=== PATIENT | female | born 1955 | race Caucasian/White ===

== ENCOUNTER → 2024-12-04 | Outpatient (CLI) | payer OTHER, SELFPAY ==
--- NOTE | 2024-12-04 | XR_ITS ---
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
[2024-12-04 09:00] LABS: Glucose Estimated Average 114 mg/dL (80-131); Hemoglobin A1C 5.6 % Hgb (4.8-6.0)
[2024-12-04 09:01] LABS: Basophils # (Auto) 0.1 Thou/mm3 (0.0-0.2); Basophils % (Auto) 1 % (0-2.5); Eosinophils # (Auto) 0.1 Thou/mm3 (0.0-0.5); Eosinophils % (Auto) 2 % (0-10); Hematocrit 39.9 % (36.0-46.0); Hemoglobin 13.4 g/dL (12.0-16.0); Immature Granulocytes % (Auto) 0 % (0-0); Immature Granulocytes Auto 0.02 Thou/mm3 (0.00-0.00); Lymphocytes # (Auto) 1.1 Thou/mm3 (1.0-4.8); Lymphocytes % (Auto) 18 % (10-50); Mean Corpuscular HGB Conc 33.6 g/dl (31.0-37.0); Mean Corpuscular Hemoglobin 31.2 pg (25.0-35.0); Mean Corpuscular Volume 93 fL (80-100); Monocytes # (Auto) 0.6 Thou/mm3 (0.0-0.8); Monocytes % (Auto) 10 % (0-12); Neutrophils # (Auto) 4.2 Thou/mm3 (1.8-7.7); Neutrophils % (Auto) 69 % (37-80); Nucleated Red Blood Cell % 0 /100 WBC (0); Platelet Count 285 Thou/mm3 (140-440); RDW Standard Deviation 43.4 fL (36.4-46.3); White Blood Count 6.2 Thou/mm3 (3.6-11.0)
[2024-12-04 09:10] LABS: Alanine Aminotransferase 38 U/L (10-49); Albumin, Serum 4.6 gm/dL (3.4-4.8); Albumin/Globulin Ratio 2.4 (1.2-2.2); Alkaline Phosphatase 88 U/L (46-116); Anion Gap 10 (7-16); Aspartate Amino Transferase 25 U/L (0-34); BUN/Creatinine Ratio 34 Ratio (12-20); Bilirubin,Total 0.3 mg/dL (0.3-1.2); Blood Urea Nitrogen 34 mg/dL (9-23); C-Reactive Protein 0.5 mg/dL (0.0-0.9); Calcium 10.1 mg/dL (8.3-10.6); Calcium (Corrected) 10.1 mg/dL (8.5-10.1); Carbon Dioxide 24.5 mMol/L (20.0-31.0); Chloride 105 mMol/L (98-107); Cholesterol 223 mg/dL (132-200); Free T4 (Free Thyroxine) 1.11 ng/dL (0.89-1.76); Globulin 1.9 gm/dL (2.3-3.5); Glucose 119 mg/dL (74-106); HDL Cholesterol 45 mg/dL (40-60); Osmolality,Calculated 286 (275-295); Potassium 4.9 mMol/L (3.4-5.1); Sodium 139 mMol/L (136-145); Thyroid Stimulating Hormone 2.55 uIU/mL (0.55-4.78); Total Protein 6.5 gm/dL (5.7-8.2); Triglycerides 463 mg/dL (30-150); eGFR > 60 See Note
[2024-12-04 09:26] LABS: Folate 8.38 ng/mL (>5.38); Vitamin B12 320 pg/mL (211-911); Vitamin D 25 Hydroxy Total 21.6 ng/mL (7.3-40.2)
[2024-12-04 09:51] LABS: Sed Rate (ESR) 1 mm/hr (0-30)
[2024-12-14 06:37] LABS: Vitamin B1 (Thiamine)* <6 nmol/L (8-30)
== END | disposition home or self-care (01) ==
PROVIDERS: PCP Physician Assistant; Referring Provider Internal Medicine; Visit Provider Radiology Diagnostic Radiology
DX: M20.12 Hallux valgus (acquired), left foot (principal); M20.11 Hallux valgus (acquired), right foot; M21.611 Bunion of right foot; M19.072 Primary osteoarthritis, left ankle and foot; M19.071 Primary osteoarthritis, right ankle and foot; E66.2 Morbid (severe) obesity with alveolar hypoventilation; Z68.37 Body mass index [BMI] 37.0-37.9, adult; G62.9 Polyneuropathy, unspecified; M17.11 Unilateral primary osteoarthritis, right knee; M24.59 Contracture, other specified joint; M25.50 Pain in unspecified joint; M54.15 Radiculopathy, thoracolumbar region; M79.10 Myalgia, unspecified site; R53.83 Other fatigue; I10 Essential (primary) hypertension; E78.5 Hyperlipidemia, unspecified; R73.01 Impaired fasting glucose
CPT/HCPCS: 36415; 73630; 80053; 80061; 82306; 82607; 82746; 83036; 84425; 84439; 84443; 85025; 85652; 86140

== ENCOUNTER → 2025-04-19 | Outpatient (CLI) | payer OTHER, SELFPAY ==
--- NOTE | 2025-04-19 12:30 | XR_ITS ---
Examination: Breast ultrasound complete, bilateral Date and time of exam: April 19, 2025 1250 hours Comparison July 23, 2024 INDICATIONS: Personal history left breast cancer lumpectomy 21 years ago, scar formation 11:00 position left breast on left breast sonogram 07/22/2024 Technique: Real-time grayscale ultrasonographic imaging bilateral breasts, including all 4 quadrants as well as nipple retroareolar and axillary regions. Findings: Sonographic images right breast 8:00 cyst 4 x 4 millimeter No solid nodules Sonographic images left breast 11:00 scar formation which appears stable compared to the prior ultrasound study IMPRESSION: BI-RADS Category 2: Benign findings
--- NOTE | 2025-04-19 13:30 | XR_ITS ---
Examination: Screening digital mammography, bilateral Computer aided detection 3-D breast Tomosynthesis, bilateral Date and time of exam: April 19, 2025 1313 hours Compared to mammograms dating to January 11, 2017 Indication: Screening Technique: Nonmagnified MLO, CC views of the breasts to been obtained, reconstructed from 3-D Tomosynthesis images. R2 computer aided detection program utilized for evaluation of suspicious masses and/or abnormal calcifications. 3-D Tomosynthesis images obtained. Findings: The breasts are heterogeneously dense, which may obscure small masses Extensive scar formation skin thickening left breast again noted consistent with patient's history treated left breast cancer 12 mm focal asymmetry 12:00 position right breast anterior depth Impression: BI-RADS Category 0: Incomplete: Need additional imaging evaluation 12 mm focal asymmetry 12:00 position right breast anterior depth, recommend follow-up spot tomographic views of this asymmetry as well as bilateral breast sonography to complete workup
--- NOTE | 2025-04-19 13:45 | XR_ITS ---
Examination: Bone densitometry Date and time of exam:April 19, 2025 1333 hours INDICATIONS: Menopause age 46 breast carcinoma diagnosis 20 years ago Technique: Lumbar spine and hip total bone mineralization values of an calculated. Peak reference and age match control results have been displayed. Findings: Lumbar spine total bone mineralization is1.108 gm/cm2. This is 0.6 standard deviations above peak reference. This is 2.8 standard deviations above age-matched controls. Hip total bone mineralization is 0.882 gm/cm2 This is 0.5 standard deviations below peak reference. This is 1.1 standard deviations above age-matched controls Impression: There is normal mineralization based on lumbar spine measurements. There is osteopenia based on hip measurements Lumbar mineralization is increased 2.0% compared with January 07, 2023 Hip mineralization is decreased 12.3% compared with January 07, 2023
== END | disposition home or self-care (01) ==
PROVIDERS: PCP Physician Assistant; Referring Provider Physician Assistant; Visit Provider Physician Assistant
DX: Z12.31 Encounter for screening mammogram for malignant neoplasm of breast (principal); N60.01 Solitary cyst of right breast; R92.333 Mammographic heterogeneous density, bilateral breasts; Z85.3 Personal history of malignant neoplasm of breast; N64.89 Other specified disorders of breast
CPT/HCPCS: 76641; 77063; 77067; 77080

== ENCOUNTER → 2025-05-21 | Outpatient (CLI) | payer OTHER, SELFPAY ==
--- NOTE | 2025-05-21 08:45 | XR_ITS ---
Examination: Breast ultrasound complete, bilateral Date and time of exam: May 21, 2025 0829 hours INDICATIONS: Scar formation 11:00 position left breast on left breast sonogram 08/19/2025, mammogram April 19, 2025 12 mm focal asymmetry 12:00 position right breast anterior depth Technique: Real-time grayscale ultrasonographic imaging bilateral breasts, including all 4 quadrants as well as nipple retroareolar and axillary regions. Findings: Sonographic images right breast 1:00 cyst 3 x 4 mm No solid nodules Sonographic images left breast 2:00 cyst 4 x 4 millimeter 11:00 scar formation 20 x 17 x 21 mm IMPRESSION: BI-RADS Category 3: Probably benign findings Follow-up six-month left breast sonogram is needed with measurements of 11:00 area of architectural distortion to document stability in size compared with the current study
--- NOTE | 2025-05-21 09:45 | XR_ITS ---
Examination: Diagnostic digital mammography, unilateral, right Computer aided detection 3-D breast Tomosynthesis, unilateral Date and time of exam: May 21, 2025 0850 hours INDICATIONS: Mammogram April 19, 2025 12 mm focal asymmetry 12:00 position right breast Technique: Nonmagnified MLO, CC views of the right breast have been obtained, reconstructed from 3-D Tomosynthesis images. R2 computer aided detection program utilized for evaluation of suspicious masses and/or abnormal calcifications. 3-D Tomosynthesis images obtained. Findings: The breast is heterogeneously dense, which may obscure small masses No suspicious mass depicted on this examination Please see the right breast sonogram report today indicating 11:00 scar formation 20 x 17 x 21 mm Impression: BI-RADS category 2: Benign findings Return to yearly follow-up mammography Right breast sonogram report today recommending 6 month follow-up right breast sonography to document stability of 11:00 scar formation, currently measuring 20 x 17 x 21 mm
[2025-05-21 09:47] LABS: Collection Type, Urine Clean Catch
[2025-05-21 10:14] LABS: Basophils # (Auto) 0.1 Thou/mm3 (0.0-0.2); Basophils % (Auto) 1 % (0-2.5); Eosinophils # (Auto) 0.1 Thou/mm3 (0.0-0.5); Eosinophils % (Auto) 2 % (0-10); Hematocrit 39.7 % (36.0-46.0); Hemoglobin 13.4 g/dL (12.0-16.0); Immature Granulocytes Auto 0.03 Thou/mm3 (0.00-0.00); Lymphocytes # (Auto) 1.2 Thou/mm3 (1.0-4.8); Lymphocytes % (Auto) 22 % (10-50); Mean Corpuscular HGB Conc 33.8 g/dl (31.0-37.0); Mean Corpuscular Hemoglobin 32.4 pg (25.0-35.0); Mean Corpuscular Volume 96 fL (80-100); Monocytes # (Auto) 0.4 Thou/mm3 (0.0-0.8); Monocytes % (Auto) 8 % (0-12); Neutrophils # (Auto) 3.9 Thou/mm3 (1.8-7.7); Neutrophils % (Auto) 68 % (37-80); Nucleated Red Blood Cell # 0.00 Thou/mm3 (0.00-0.00); Nucleated Red Blood Cell % 0 /100 WBC (0); Platelet Count 280 Thou/mm3 (140-440); RDW Standard Deviation 47.4 fL (36.4-46.3); Red Blood Count 4.13 Miln/mm3 (4.00-5.20); White Blood Count 5.7 Thou/mm3 (3.6-11.0)
[2025-05-21 10:23] LABS: Bilirubin,Urine Negative (Negative); Blood,Urine Negative (Negative); Clarity,Urine Clear (Clear/Hazy); Color,Urine Lt-Yellow (Lt Yel-Yel); Culture Indicated,Urine Not Indicated; Glucose, Urine Negative (Negative); Ketones,Urine Negative (Negative); Leukocyte Esterase,Urine Positive (Negative); Nitrite,Urine Negative (Negative); PH,Urine 6.0 (5.0-7.0); Protein,Urine Negative (Neg - Trace); RBC,Urine 1 /hpf (0-3); Specific Gravity,Urine 1.016 (1.001-1.035); Squamous Epithelial Cell,Urine 1 /hpf (0-5); Urobilinogen,Urine Negative mg/dL (0.0-1.0); WBC,Urine 2 /hpf (0-5)
[2025-05-21 10:33] LABS: Vitamin B12 362 pg/mL (211-911); Vitamin D 25 Hydroxy Total 32.0 ng/mL (7.3-40.2)
[2025-05-21 10:59] LABS: Alanine Aminotransferase 31 U/L (10-49); Albumin, Serum 4.7 gm/dL (3.4-4.8); Albumin/Globulin Ratio 2.1 (1.2-2.2); Alkaline Phosphatase 97 U/L (46-116); Anion Gap 13 (7-16); Aspartate Amino Transferase 27 U/L (0-34); BUN/Creatinine Ratio 19 Ratio (12-20); Bilirubin,Total 0.4 mg/dL (0.3-1.2); Blood Urea Nitrogen 21 mg/dL (9-23); C-Reactive Protein < 0.5 mg/dL (0.0-0.9); Calcium 9.4 mg/dL (8.3-10.6); Calcium (Corrected) 9.4 mg/dL (8.5-10.1); Carbon Dioxide 24.6 mMol/L (20.0-31.0); Cardiac Risk Estimate 3.9 RATIO (3.7-5.6); Chloride 107 mMol/L (98-107); Cholesterol 209 mg/dL (132-200); Creatinine (Component) 1.1 mg/dL (0.6-1.3); Globulin 2.2 gm/dL (2.3-3.5); Glucose 103 mg/dL (74-106); HDL Cholesterol 53 mg/dL (40-60); LDL Cholesterol,Calculated 118 mg/dL (0-130); Osmolality,Calculated 291 (275-295); Potassium 4.6 mMol/L (3.4-5.1); Sodium 145 mMol/L (136-145); Thyroid Stimulating Hormone 3.90 uIU/mL (0.55-4.78); Total Protein 6.9 gm/dL (5.7-8.2); Triglycerides 190 mg/dL (30-150); eGFR 54 See Note
[2025-05-21 11:49] LABS: Sed Rate (ESR) 7 mm/hr (0-30)
[2025-05-21 15:45] LABS: RA Screen Negative (Negative)
[2025-05-26 06:33] LABS: CCP Antibody (IgG)* <16 Units
== END | disposition home or self-care (01) ==
LOC: CDIM 08:15 → COPL 09:01
PROVIDERS: PCP Family Medicine; Referring Provider Physician Assistant Medical; Visit Provider Physician Assistant
DX: Z00.00 Encounter for general adult medical examination without abnormal findings (principal); E78.5 Hyperlipidemia, unspecified; I10 Essential (primary) hypertension; E55.9 Vitamin D deficiency, unspecified; R92.321 Mammographic fibroglandular density, right breast; N64.89 Other specified disorders of breast
CPT/HCPCS: 36415; 76641; 77061; 77065; 80053; 80061; 81001; 82306; 82607; 84443; 85025; 85652; 86140; 86200; 86430; G0279

== ENCOUNTER 2025-08-10 10:42 | Inpatient (IN) | payer OTHER, MEDICARE, SELFPAY ==
[2025-08-10] VITALS (32 sets, daily range): BP systolic 110–149; BP diastolic 65–106; PULSE 65–88; RESP 12–100; TEMP 36.4–36.5; O2SAT 86–100; BMI 15.9
--- NOTE | 2025-08-10 10:43 | XR_ITS ---
EXAMINATION: AP chest single view TECHNIQUE: AP portable sitting chest single view Date and time: August 10, 2025, 1144 hours INDICATIONS: Stroke alert shortness of breath today. FINDINGS: Normal heart size. No aspiration pneumonia. Prominent osteopenia. IMPRESSION: Negative for aspiration pneumonia
--- NOTE | 2025-08-10 10:43 | XR_ITS ---
Examination: CTA carotids with intravenous contrast CTA brain, head with intravenous contrast. 2-D sagittal, coronal reconstructions. 3-D reconstructions. Exam date and time: August 10, 2025, 1058 hours INDICATIONS: Stroke alert today, onset slurred speech focal neurologic deficit CTDI: vol (mGy) 11.7 DLP: (mGycm) 457 Technique: Multiple CTA axial brain, head carotid images post intravenous contrast injection 75 cc, [id number]. 2-D sagittal, coronal reconstructions. 3-D reconstructions, 3-D post processing including vascular maximum intensity projection images. Low dose protocols were performed. One or more of the following dose reduction techniques were used; automated exposure control, adjustment of the mA and/or KV according to patient size, use of iterative reconstruction technique. Findings: 14 mm right thyroid nodule No significant common carotid carotid bifurcation or internal carotid artery stenoses Codominant vertebral arteries with no critical stenoses Intracranial vertebral arteries basilar artery posterior cerebral branches fill with no large vessel occlusions Moderate calcification juxtasellar internal carotid arteries No large vessel occlusions involving middle cerebral or anterior cerebral arteries IMPRESSION: A 14 mm right thyroid nodule No significant neck arterial stenoses No cerebral large vessel arterial occlusions
--- NOTE | 2025-08-10 10:43 | XR_ITS ---
Examination: CT brain head without contrast. 2-D sagittal coronal reconstructions Date and time of exam: August 10, 2025, 10:49 a.m. INDICATIONS: Stroke alert, onset focal neurologic deficit this morning including slurred speech CTDI: vol (mGy): 47.3 DLP: (mGycm): 911 Technique: Multiple CT axial sections of the brain have been obtained, 5 mm slice thickness. Contrast has not been administered. 2-D sagittal, coronal reconstructions have been obtained Low dose protocols were performed. One or more of the following dose reduction techniques were used; automated exposure control, adjustment of the mA and/or KV according to patient size, use of iterative reconstruction technique. Findings: No significant ventricular enlargement. Intra-axial or extra-axial hemorrhage density is not seen. No mass effect or midline shift Basal cisterns are not remarkable. Fourth ventricle is midline. Cranial vault intact. Impression: Negative for acute hemorrhage, mass effect or midline shift
--- NOTE | 2025-08-10 10:43 | EKG_ITS ---
[facility] Test Date: 2025-08-10 Pat Name: SHANTEL CLARKE Department: Room: - Gender: Female [employer]er Helper: : [id number] Requested By: Alejandra Odonnell Order Number: [id number] Reading MD: Alejandra Odonnell Measurements Intervals Watts Rate: 89 P: 95 VT: 190 QRS: 134 QRSD: 108 T: 123 QT: 375 QTc: 458 Interpretive Statements SINUS RHYTHM ARM LEADS REVERSED [INVERTED P AND QRS IN I] Compared to ECG 05/30/2023 07:35:48 Incomplete right bundle-branch block no longer present T-wave abnormality no longer present /store/[id number]
--- NOTE | 2025-08-10 10:46 | EDNOTE_ITS ---
Altered Mental Status RME/HPI General Chief Complaint: Altered Mental Status Stated Complaint: ALTERED SINCE YESTERDAY Time Seen by Provider: 08/10/25 10:48 Arrival date/time: 08/10/25 10:42 RME / HPI RME / HPI narrative: 70 year old female with history of hypertension and chronic pain presents to the ED, accompanied by her daughter, for evaluation of confusion and slurred speech that began earlier today. According to the daughter, the patient drove herself to work this morning, but coworkers later called the daughter to report that the patient appeared unwell. Upon arrival, the daughter noted that the patient was disoriented, unable to recall her location, the date, or her birthday, and was repetitively asking the same questions. The patient also appeared to have difficulty with balance, requiring assistance while walking to the car. Daughter contacted patients PCP Dr. Bonner over the phone and recommended coming to the ED for further evaluation. Daughter also mentioned that for the past several weeks, the patient has had intermittent episodes of slurred speech, confusion, dizziness, and falls, although today's episode is significantly more severe. Patient had a fall yesterday but did not sustain any head injury or loss of consciousness. No additional complaints reported at this time. Daughter additionally reports patient began a new weight loss medication that is similar to Ozempic. Related Data Home Medications ?Medication ?Instructions ?Recorded ?Confirmed amitriptyline 25 mg tablet mg PO DAILY 08/10/25 amlodipine 5 mg tablet mg 08/10/25 baclofen 20 mg tablet mg 08/10/25 cyclobenzaprine 10 mg tablet mg 08/10/25 duloxetine 30 mg capsule,delayed mg PO 08/10/25 release ezetimibe 10 mg tablet mg 08/10/25 gabapentin 300 mg capsule mg 08/10/25 hydrocodone 5 mg-acetaminophen 325 tab 08/10/25 mg tablet losartan 100 tab 08/10/25 mg-hydrochlorothiazide 25 mg tablet metoprolol succinate 25 mg mg PO 08/10/25 tablet,extended release 24 hr phentermine 37.5 mg capsule 37.5 mg PO QAM 08/10/25 ropinirole 0.25 mg tablet mg 08/10/25 tirzepatide (weight loss) 7.5 7.5 mg subcut QWEEK 10/0 7/25 10/07/25 mg/0.5 mL subcutaneous pen injector (Cracklepbound) tizanidine 4 mg capsule 4 mg PO DAILY 08/10/2508/10 Allergies Allergy/AdvReac Type Severity Reaction Status Date / Time No Known Allergies Allergy Verified 08/10/25 10:45 Review of Systems Review of Systems Systems Reviewed: All systems reviewed, normal except as documented Past Medical History Past Medical History CARDIAC: Positive Hypertension Social History SMOKING STATUS: Never smoker ED Exam Narrative Physical exam: GENERAL APPEARANCE: alert, appears confused, well-developed, well-nourished HEENT: Normocephalic, atraumatic; pupils equal, round, reactive to light; EOMI; mucous membranes pink, moist; oropharynx clear NECK: Supple LUNGS: CTABL; no wheezes, no rales, no rhonchi HEART: Regular rate, regular rhythm; normal S1, S2; no murmurs ABDOMEN: non distended; normal BS; soft, no tenderness, no guarding, no rebound; no masses, no organomegaly, no hernia EXTREMITIES: atraumatic; no edema NEUROLOGIC: awake; appears confused; cranial nerves II-XII grossly intact; mild left upper extremity weakness PSYCHIATRIC: appropriate mood and affect SKIN: warm, dry, normal color; no rashes Course Course Course Narrative: 1038a: Called over to old triage to evaluate the patient. Blood sugar 79. Ordered for half an amp of D50 to be given. Stroke alert activated. Idania, the sepsis and stoke coordinator, states she spoke with patient family who reported finding [place] and muscle relaxers in patients purse. Do not know if she is currently taking. 1110a: I spoke with teleneurologist Dr. Pepe. States during their assessment, the patient was falling asleep on the CT bed and had to keep stimulating the patient to wake up. States patient was only able to give name and nothing else. Patient is not a TNK candidate, LKWT is unknown. Quality Measures Suspected type of Stroke: Non Acute Last know well: unknown Tenecteplase given: Reason(s) TPA not given: Outside the time window not given stroke Orders Category Date Time Status Admit to Inpatient Status Routine Admission 08/10/25 14:39 Active Patient Condition Routine Admission 08/10/25 14:39 Ordered Aspiration precautions ONCE Care 08/10/25 14:41 Active Bedside Blood Glucose NOW Care 08/10/25 10:43 Active Clinical Education Coordinator NOW Care 08/10/25 10:43 Active Continuous Pulse Oximetry NOW Care 08/10/25 10:43 Completed EKG (ED ONLY) *Do not use* NOW Care 08/10/25 10:43 Completed Head of Bed Elevation NOW Care 08/10/25 14:41 Active In and Out Catheter NEEDED Care 08/10/25 10:43 Active Insert IV NOW Care 08/10/25 10:43 Active NIH Stroke Scale now Care 08/10/25 10:43 Active NPO NOW Care 08/10/25 10:43 Active NPO NOW Care 08/10/25 14:40 Active Neuro Check Q4H Care 08/10/25 14:41 Active Notify provider NEEDED Care 08/10/25 14:39 Active Notify provider NEEDED Care 08/10/25 14:52 Active Nurse Swallow Screen x1 Care 08/10/25 10:43 Active Seizure precautions NEEDED Care 08/10/25 14:53 Active Consult to Neurology / Tele-Neurology Routine Cons 08/10/25 10:43 Active Referral Physical Therapy Routine Cons 08/10/25 15:02 Active Referral Speech Therapy Routine Cons 08/10/25 15:03 Active Diet NPO (NOW) Diet 08/10/25 14:40 Active CA echo doppler complete Routine Exams 08/10/25 14:[address] angio stroke protocol Stat Exams 08/10/25 10:[address] stroke protocol Stat Exams 08/10/25 10:43 Completed EKG (ED Only) Stat Exams 08/10/25 10:43 Draft XR chest 1V portable Stat Exams 08/10/25 10:43 Completed ABG [Arterial Blood Gas] Stat Lab 08/10/25 15:01 Ordered Ammonia Stat Lab 08/10/25 14:06 Completed B-Type Natriuretic Peptide Stat Lab 08/10/25 11:00 Completed Basic Metabolic Panel AM DRAW Lab 08/11/25 05:00 Ordered Basic Metabolic Panel AM DRAW Lab 08/12/25 05:00 Ordered Basic Metabolic Panel AM DRAW Lab 08/13/25 05:00 Ordered Beta Hydroxybutyrate Routine Lab 08/10/25 15:01 Ordered CBC AM DRAW Lab 08/11/25 05:00 Ordered CBC AM DRAW Lab 08/12/25 05:00 Ordered CBC AM DRAW Lab 08/13/25 05:00 Ordered CBC Stat Lab 08/10/25 11:00 Completed Comprehensive Metabolic Panel Stat Lab 08/10/25 11:00 Completed Drug Screen,Urine Stat Lab 08/10/25 11:19 Completed Hemoglobin A1C [Glycohemoglobin w (eAG)] AM DRAW Lab 08/11/25 05:00 Ordered Lactate (Lactic Acid) Routine Lab 08/10/25 15:01 Ordered Lipid Panel AM DRAW Lab 08/11/25 05:00 Ordered Magnesium AM DRAW Lab 08/11/25 05:00 Ordered Magnesium AM DRAW Lab 08/12/25 05:00 Ordered Magnesium AM DRAW Lab 08/13/25 05:00 Ordered Magnesium Stat Lab 08/10/25 11:00 Completed Partial Thromboplastin Time Stat Lab 08/10/25 11:00 Completed Phosphorous AM DRAW Lab 08/11/25 05:00 Ordered Phosphorous AM DRAW Lab 08/12/25 05:00 Ordered Phosphorous AM DRAW Lab 08/13/25 05:00 Ordered Prothrombin Time with INR Stat Lab 08/10/25 11:00 Completed TSH [Thyroid Stimulating Hormone] Stat Lab 08/10/25 14:06 Completed Troponin I Stat Lab 08/10/25 11:00 Completed Urinalysis, C/S if Indicated Stat Lab 08/10/25 11:19 Completed Acetaminophen Tab [Tylenol Tab] Med 08/10/25 14:52 Ordered 650 mg PO Q6H PRN Albuterol/Ipratr Rt Meaghan [Duoneb Rt Meaghan] Med 08/10/25 14:39 Active 3 ml INH Q2HR PRN Dextrose 50% Syr [D50w Syringe Abboject] Med 08/10/25 10:45 Discontinued 25 ml IVP X1 ONE Dextrose 50% Syr [D50w Syringe Abboject] Med 08/10/25 10:46 Discontinued 50 ml .ROUTE .STK-MED ONE Dextrose 50% Syr [D50w Syringe Abboject] Med 08/10/25 14:57 Ordered 50 ml IV Q15MIN PRN Glucagon Inj Med 08/10/25 14:57 Ordered 1 mg IM Q15MIN PRN Heparin Inj Med 08/10/25 15:00 Ordered 5,000 unit SC Q8HR INSULIN LISPRO (AdmeLOG) [HumaLOG] Med 08/10/25 15:15 Ordered See Protocol SC Q6HR Labetalol IV [Trandate IV] Med 08/10/25 10:43 Discontinued 10 mg IVP Q15M PRN Magnesium Sulfate 2 GM Ivpb [Magnesium Sulfate Ivpb] Med 08/10/25 13:10 Discontinued 2 gm in 50 ml IV X1 Magnesium Sulfate 2 GM Ivpb [Magnesium Sulfate Ivpb] Med 08/10/25 15:00 Ordered 2 gm in 50 ml IV X1 Ondansetron Inj [Zofran Inj] Med 08/10/25 10:43 Discontinued 4 mg IVP Q4HR PRN Ondansetron Inj [Zofran Inj] Med 08/10/25 14:52 Ordered 4 mg IVP Q6H PRN Ringers Lactated 1000 ml [Lactated Ringers] 1,000 ml Med 08/10/25 15:00 Ordered IV 100 mls/hr Sodium Chloride 0.9% 1000 ml [Ns] 1,000 ml Med 08/10/25 13:10 Discontinued IV 999 mls/hr hydrALAZINE INJ [Apresoline Inj] Med 08/10/25 15:02 Ordered 10 mg IVP Q4H PRN Code Status Routine Oth 08/10/25 14:39 Ordered Oxygen Delivery NOW RT 08/10/25 10:43 Active Vital Signs Vital signs: Vital Signs Temperature 97.6 F 08/10/25 10:49 Pulse Rate 76 08/10/25 10:49 Respiratory Rate 12 08/10/25 10:49 Blood Pressure 123/106 H 08/10/25 10:49 Pulse Oximetry (%) 96 08/10/25 10:49 Oxygen Delivery Method Room Air 08/10/25 10:49 Pulse ox is 96% on room air which is adequate. Altered Mental Status MDM Narrative MDM Narrative:: Arina Cee am scribing for and in the presence of Dr. Sheets. Patient data External records reviewed:: [facility] previous records Clinical information provided by:: family Social determinants that could affect healthcare access:: none Patient has the following chronic illnesses:: HTN How is presenting disease/condition affected by chronic disease/condition?: exacerbated by Evaluation data The following diagnostics were reviewed and interpreted by me:: lab results, radiology exam(s) and EKG tracing(s) (EKG @ 11:21 AM. Sinus rhythm, rate 89, no STEMI. ) Lab and/or radiology exams considered but not ordered:: None Interpretation Summary: Ordering Physician: Alejandra Sheets MD Date of Service: 08/10/25 Procedure(s): XR chest 1V portable Accession Number(s): [id number] cc: Bishop Velasquez MD; Fatuma Manuel PA-C; Alejandra Sheets MD~ EXAMINATION: AP chest single view TECHNIQUE: AP portable sitting chest single view Date and time: August 10, 2025, 1144 hours INDICATIONS: Stroke alert shortness of breath today. FINDINGS: Normal heart size. No aspiration pneumonia. Prominent osteopenia. IMPRESSION: Negative for aspiration pneumonia Dictated By: Bishop Velasquez MD Signed By: <Electronically signed by Bishop Velasquez MD in OV> 08/10/25 1227 Ordering Physician: Alejandra Sheets MD Date of Service: 08/10/25 Procedure(s): CT stroke protocol Accession Number(s): [id number] cc: Bishop Velasquez MD; Alejandra Sheets MD~ Examination: CT brain head without contrast. 2-D sagittal coronal reconstructions Date and time of exam: August 10, 2025, 10:49 a.m. INDICATIONS: Stroke alert, onset focal neurologic deficit this morning including slurred speech CTDI: vol (mGy): 47.3 DLP: (mGycm): 911 Technique: Multiple CT axial sections of the brain have been obtained, 5 mm slice thickness. Contrast has not been administered. 2-D sagittal, coronal reconstructions have been obtained Low dose protocols were performed. One or more of the following dose reduction techniques were used; automated exposure control, adjustment of the mA and/or KV according to patient size, use of iterative reconstruction technique. Findings: No significant ventricular enlargement. Intra-axial or extra-axial hemorrhage density is not seen. No mass effect or midline shift Basal cisterns are not remarkable. Fourth ventricle is midline. Cranial vault intact. Impression: Negative for acute hemorrhage, mass effect or midline shift Dictated By: Bishop Velasquez MD Signed By: <Electronically signed by Bishop Velasquez MD in OV> 08/10/25 1056 Ordering Physician: Alejandra Sheets MD Date of Service: 08/10/25 Procedure(s): CT angio stroke protocol Accession Number(s): [id number] cc: Bishop Velasquez MD; Fatuma Manuel PA-C; Alejandra Sheets MD~ Examination: CTA carotids with intravenous contrast CTA brain, head with intravenous contrast. 2-D sagittal, coronal reconstructions. 3-D reconstructions. Exam date and time: August 10, 2025, 1058 hours INDICATIONS: Stroke alert today, onset slurred speech focal neurologic deficit CTDI: vol (mGy) 11.7 DLP: (mGycm) 457 Technique: Multiple CTA axial brain, head carotid images post intravenous contrast injection 75 cc, [id number]. 2-D sagittal, coronal reconstructions. 3-D reconstructions, 3-D post processing including vascular maximum intensity projection images. Low dose protocols were performed. One or more of the following dose reduction techniques were used; automated exposure control, adjustment of the mA and/or KV according to patient size, use of iterative reconstruction technique. Findings: 14 mm right thyroid nodule No significant common carotid carotid bifurcation or internal carotid artery stenoses Codominant vertebral arteries with no critical stenoses Intracranial vertebral arteries basilar artery posterior cerebral branches fill with no large vessel occlusions Moderate calcification juxtasellar internal carotid arteries No large vessel occlusions involving middle cerebral or anterior cerebral arteries IMPRESSION: A 14 mm right thyroid nodule No significant neck arterial stenoses No cerebral large vessel arterial occlusions Dictated By: Bishop Velasquez MD Signed By: <Electronically signed by Bishop Velasquez MD in OV> 08/10/25 1256 Medications / Prescriptions Medications or Prescriptions considered but not ordered:: None Medication administrations:: Medication Administration History Acetaminophen (Acetaminophen 325 Mg Tablet) 650 mg PO Q6H PRN PRN Reason: Fever >100.0 or pain mild 1-3 Stop: 09/09/25 14:51 Albuterol/Ipratropium (Albuterol/Ipratropium (Duoneb) Rt Meaghan 3 Ml Nebu) 3 ml INH Q2HR PRN PRN Reason: SHORTNESS OF BREATH OR WHEEZE Stop: 09/09/25 14:38 Dextrose (Dextrose 50%-Water Inj 50 Ml Syringe) 50 ml IV Q15MIN PRN PRN Reason: BG <50 OR BG <70 & pt unresponsive Stop: 09/09/25 14:56 Glucagon (Glucagon Inj 1 Mg Vial) 1 mg IM Q15MIN PRN PRN Reason: BG <70, and no IV access Heparin Sodium (Porcine) (Heparin Sod Inj 5000 Unit/Ml Vial) 5,000 unit SC Q8HR MARGARETTE Stop: 08/24/25 14:59 Hydralazine HCl (Hydralazine Inj 20 Mg/Ml Vial) 10 mg IVP Q4H PRN PRN Reason: SBP > 180 Stop: 09/09/25 15:01 Lactated Ringer's (Lactated Ringers) 1,000 mls @ 100 mls/hr IV .Q10H MARGARETTE Stop: 09/09/25 14:59 Magnesium Sulfate (Magnesium Sulfate Ivpb) 2 gm in 50 mls @ 25 mls/hr IV X1 ONE Stop: 08/10/25 16:59 Insulin Human Lispro (Insulin Lispro (Admelog) 1 Unit/0.01 Ml Unit) 0 unit SC Q6HR MARGARETTE; Protocol Stop: 09/09/25 15:14 Ondansetron HCl (Ondansetron Inj 2 Mg/Ml Inj 2 Ml) 4 mg IVP Q6H PRN; Protocol PRN Reason: NAUSEA OR VOMITING Stop: 09/09/25 14:51 Discontinued Medications Dextrose (Dextrose 50%-Water Inj 50 Ml Syringe) 25 ml IVP X1 ONE Stop: 08/10/25 10:46 Last Admin: 08/10/25 11:00 Dose: 25 ml Documented By: RAND Dextrose (Dextrose 50%-Water Inj 50 Ml Syringe) Confirm Administered Dose 50 ml .ROUTE .STK-MED ONE Stop: 08/10/25 10:47 Last Admin: 08/10/25 11:59 Dose: Not Given Documented By: RAND Non-Admin Reason: Duplicate Medication on eMAR Magnesium Sulfate (Magnesium Sulfate Ivpb) 2 gm in 50 mls @ 25 mls/hr IV X1 ONE Stop: 08/10/25 15:09 Last Admin: 08/10/25 13:53 Dose: 25 mls/hr Documented By: LIVIER Sodium Chloride (Ns) 1,000 mls @ 999 mls/hr IV .Q1H1M ONE Stop: 08/10/25 14:10 Last Infusion: 08/10/25 14:57 Dose: Infused Documented By: Admin: 08/10/25 13:53 Dose: 999 mls/hr Documented By: VG Labetalol HCl (Labetalol Inj 5 Mg/Ml Vial 20 Ml) 10 mg IVP Q15M PRN PRN Reason: HYPER Ondansetron HCl (Ondansetron Inj 2 Mg/Ml Inj 2 Ml) 4 mg IVP Q4HR PRN PRN Reason: NAUSEA OR VOMITING Stop: 09/09/25 10:42 See above Consultations Consultation(s) initiated? (list below): Yes Consultation #1 (Physician, Specialty, Details): See course Diagnosis Most likely diagnosis given after review of the tests above:: Altered mental status Acute kidney injury Acute hypomagnesemia Admission Indicated Admission indicated?: indicated Admission Request Was there a request for admission?: Yes Admission Attestation Admission request attestation: Discussed case with [] from Hospitalist service regarding admission. Discussed patients ED course, exam findings, labs, and radiology results. The Hospitalist [agrees,declines] to accept the patient for admission. Disposition Plan Disposition Plan: Admit Critical Care Time Critical Care Time Critical Care Time: Yes Total Critical Care Time (min.): 35 Attestation: The high probability of sudden, clinically significant deterioration in the patient's condition required the highest level of my preparedness to intervene urgently. The services I provided to this patient were to treat and/or prevent clinically significant deterioration. Services included the following: chart data review, reviewing nursing notes and/or old charts, documentation time, business intelligence consultant collaboration regarding findings and treatment options, medication orders and management, direct patient care, vital sign assessments and ordering, interpreting and reviewing diagnostic studies and lab tests. Aggregate critical care time includes only time during which I was engaged in work directly related to the patient's care, as described above, whether at bedside or elsewhere in the Emergency Department. It did not include time spent performing other reported procedures or the services of residents, students, nurses or physician assistants. Discharge Plan Plan Patient Disposition: Admit Acute Care w/in Hospital Prescriptions/Referrals Prescriptions/Med Rec: No Action hydrocodone-acetaminophen 5-325 mg tablet Patient Comments: TAKE 1/2 TABLET BY MOUTH 2 TIMES PER DAY NEEDED amlodipine 5 mg tablet Patient Comments: TAKE 1 TABLET BY MOUTH EVERY DAY amitriptyline 25 mg tablet PO DAILY Patient Comments: TAKE 1 TABLET BY MOUTH EVERYDAY AT BEDTIME gabapentin 300 mg capsule Patient Comments: TAKE 1 CAPSULE BY MOUTH THREE TIMES A DAY tizanidine 4 mg capsule 4 mg PO DAILY baclofen 20 mg tablet losartan-hydrochlorothiazide 100-25 mg tablet Patient Comments: TAKE 1 TABLET BY MOUTH EVERY DAY ropinirole 0.25 mg tablet Patient Comments: TAKE 1 -2 TABS ORAL ROUTE 2 HOURS BEFORE BEDTIME metoprolol succinate 25 mg tablet extended release 24 hr PO Patient Comments: TAKE 1 TABLET BY MOUTH TWICE A DAY ezetimibe 10 mg tablet Patient Comments: TAKE 1 TABLET BY MOUTH EVERY DAY duloxetine 30 mg capsule,delayed release(DR/EC) PO Patient Comments: TAKE 1 CAPSULE BY MOUTH TWICE A DAY Zepbound 7.5 mg/0.5 mL pen injector 7.5 mg subcut QWEEK phentermine 37.5 mg capsule 37.5 mg PO QAM Rx Instructions: must administer 30 minutes before or 1-2 hours after breakfast cyclobenzaprine 10 mg tablet Patient Comments: TAKE 1 TABLET BY ORAL ROUTE EVERY DAY AT BEDTIME FOR MUSCLE PAINS Referrals: Fatuma Manuel PA-C [Primary Care Provider] - In 1 week Problem List Clinical Impression: Altered mental status, Hypomagnesemia, Acute kidney injury Patient/Caregiver Discharge Instructions Print Language: Italian Stand Alone Forms: [facility] Award Info., Patient Portal Info Letter
--- NOTE | 2025-08-10 10:46 | PC.NURSE ---
PATIENT WALKED IN WITH DAUGHTER TO ED FOR ALTERED MENTAL STATUS. DR. MOSQUEDA ASSESSED PATIENT IN TRIAGE ROOM AND STROKE ALERT CALLED AT [phone]
--- NOTE | 2025-08-10 10:49 | PC.NURSE ---
pt came in with family through triage with confusion, weakness, slurred speech and going in and out of consciousness. pt is arousable to light pain stimulation. pt is unable to lift legs bilateral or left arm at this time. pt is A&Ox2. pt also is having some snoring respirations during ct scan. family did state that she is on 2 diet medication and take pain medication. unknown exactly when s/s started. per daughter pt has been having slurry speech and confusion for a few weeks but worse today. daughter also stated that she was normal yesterday at 1730 at [facility]. bs 79mg/dl but per md gave 1/2 amp d50.
[2025-08-10] MEDS: DEXTROSE 50%-WATER INJ 50 ML SYRINGE 25 ML IVP (11:00)
--- NOTE | 2025-08-10 11:00 | PC.NURSE ---
per tele neuro stated no TPA/TNK unknown last known well.
--- NOTE | 2025-08-10 11:10 | ESCONSULT_ITS ---
Tele Neuro Consultation Consultation Date 08/10/25 Consultation Narrative [facility] Tele[facility]rology Consult [facility] Patient Name:???Giovanna Arredondo Date of :???1955 Identification Number:??? Date of Service:???08/10/2025 10:43:52 Diagnosis:?G93.49 - Encephalopathy Multifactorial Impression: ?Patient is a 70 year old woman, presenting for slurred speech, confusion which has been going on for a few weeks but worse today per daughter. No reportedly prior history of strokes and not reportedly on blood thinners. Had glucose of 79 on arrival. LKN unknown but > 24 hrs ago. Also with reported multiple falls over the past few days. ? ?The patient was not a candidate for IV thrombolytics due to LKN > 4.5 hrs ago. ? ?CT head was performed. No acute findings per radiology report. I reviewed images as well. ? ?Differential includes but not limited to tjlfd-kddimjhzd-hmqxwrgdgi encephalopathy. Recommend encephalopathy workup per primary, if unrevealing consider MRI head without contrast to evaluate for stroke. ? Our recommendations are outlined below. Recommendations: ? Bedside Swallow Eval ?Differential includes but not limited to sowfa-puwbdxghe-hbmehmfobk encephalopathy. Recommend encephalopathy workup per primary, if unrevealing consider MRI head without contrast to evaluate for stroke. Sign Out: ? Discussed with Emergency Department Provider Advanced Imaging:Advanced imaging has been ordered. Results pending. Metrics: Last Known Well: Unknown Dispatch Time: 08/10/2025 10:43:52 Arrival Time: 08/10/2025 10:42:00 Initial Response Time: 08/10/2025 10:45:14Symptoms: slurred speech, confusion . Initial patient interaction: 08/10/2025 10:45:42 NIHSS Assessment Completed: 08/10/2025 11:04:45Patient is not a candidate for Thrombolytic. Thrombolytic Medical Decision: 08/10/2025 11:04:46Patient was not deemed candidate for Thrombolytic because of following reasons: LKW outside 4.[address] Head: I personally reviewed all the CT images that were available to me and it showed: no acute hemorrahge. Primary Provider Notified of Diagnostic Impression and Management Plan on: 08/10/2025 11:10:34 History of Present Illness:Patient is a 70 year old Female. Patient was brought by private transportation with symptoms of slurred speech, confusion . Patient is a 70 year old woman, presenting for slurred speech, confusion which has been going on for a few weeks but worse today per daughter. No reportedly prior history of strokes and not reportedly on blood thinners. Had glucose of 79 on arrival. ? Past Medical History: ?There is no history of Stroke Medications: No Anticoagulant use? No Antiplatelet use Reviewed EMR for current medications Allergies:? Reviewed Social History: Drug Use: No Family History: There is no family history of premature cerebrovascular disease pertinent to this consultation ROS : 14 Points Review of Systems was performed and was negative except mentioned in HPI. Past Surgical History: There Is No Surgical History Contributory To Today?s Visit ? Examination: BP(123/106),?Pulse(76),?Blood Glucose(79) 1A: Level of Consciousness - Arouses to minor stimulation?+ 1 1B: Ask Month and Age - Could Not Answer Either Question Correctly?+ 2 1C: Blink Eyes & Squeeze Hands - Performs Both Tasks?+ 0 2: Test Horizontal Extraocular Movements - Normal?+ 0 3: Test Visual Cummings - No Visual Loss?+ 0 4: Test Facial Palsy (Use Grimace if Obtunded) - Normal symmetry?+ 0 5A: Test Left Arm Motor Drift - Drift, but doesn't hit bed?+ 1 5B: Test Right Arm Motor Drift - Drift, but doesn't hit bed?+ 1 6A: Test Left Leg Motor Drift - Drift, but doesn't hit bed?+ 1 6B: Test Right Leg Motor Drift - Drift, but doesn't hit bed?+ 1 7: Test Limb Ataxia (FNF/Heel-Hernandez) - No Ataxia?+ 0 8: Test Sensation - Normal; No sensory loss?+ 0 9: Test Language/Aphasia - Severe Aphasia: Fragmentary Expression, Inference Needed, Cannot Identify Materials?+ 2 10: Test Dysarthria - Mild-Moderate Dysarthria: Slurring but can be understood?+ 1 11: Test Extinction/Inattention - No abnormality?+ 0 NIHSS Score:?10 NIHSS Free Text :?confused, lethargic, not following commands consistently, not able to name objects, A/O to self only Pre-Morbid Modified Anyi Scale: 0 Points = No symptoms at all Spoke with :?Dr Alejandra Sheets This consult was conducted in real time using interactive audio and video technology. Patient was informed of the technology being used for this visit and agreed to proceed. Patient located in hospital and provider located at home/office setting. Patient is being evaluated for possible acute neurologic impairment and high pro bability of imminent or life-threatening deterioration. I spent total of 30 minutes providing care to this patient, including time for face to face visit via telemedicine, review of medical records, imaging studies and discussion of findings with providers, the patient and/or family. Dr Marquis Pepe [facility] For Inpatient follow-up with [facility] physician please call [facility] at [phone]. As we are not an outpatient service for any post hospital discharge needs please contact the hospital for assistance. If you have any questions for the [facility] physicians or need to reconsult for clinical or diagnostic changes please contact us via [facility] at . Signature :[place] ?
[2025-08-10 11:20] LABS: Basophils # (Auto) 0.0 Thou/mm3 (0.0-0.2); Basophils % (Auto) 1 % (0-2.5); Eosinophils # (Auto) 0.1 Thou/mm3 (0.0-0.5); Eosinophils % (Auto) 1 % (0-10); Hematocrit 40.7 % (36.0-46.0); Hemoglobin 13.8 g/dL (12.0-16.0); Immature Granulocytes Auto 0.03 Thou/mm3 (0.00-0.00); Lymphocytes # (Auto) 1.1 Thou/mm3 (1.0-4.8); Lymphocytes % (Auto) 12 % (10-50); Mean Corpuscular HGB Conc 33.9 g/dl (31.0-37.0); Mean Corpuscular Hemoglobin 30.6 pg (25.0-35.0); Mean Corpuscular Volume 90 fL (80-100); Monocytes # (Auto) 0.7 Thou/mm3 (0.0-0.8); Monocytes % (Auto) 9 % (0-12); Neutrophils # (Auto) 6.7 Thou/mm3 (1.8-7.7); Neutrophils % (Auto) 78 % (37-80); Nucleated Red Blood Cell # 0.00 Thou/mm3 (0.00-0.00); Nucleated Red Blood Cell % 0 /100 WBC (0); Platelet Count 295 Thou/mm3 (140-440); RDW Standard Deviation 42.1 fL (36.4-46.3); Red Blood Count 4.51 Miln/mm3 (4.00-5.20); White Blood Count 8.6 Thou/mm3 (3.6-11.0)
[2025-08-10 11:25] LABS: Collection Type, Urine Catheter; Squamous Epithelial Cell,Urine 0 /hpf (0-5)
[2025-08-10 11:25] LABS: INR 1.0 (0.9-1.3); Partial Thromboplastin Time 26.8 Seconds (22.0-36.0); Prothrombin Time 10.8 Seconds (9.0-12.2)
[2025-08-10 11:34] LABS: Bilirubin,Urine Negative (Negative); Blood,Urine Negative (Negative); Clarity,Urine Clear (Clear/Hazy); Color,Urine Lt-Yellow (Lt Yel-Yel); Culture Indicated,Urine Not Indicated; Glucose, Urine Negative (Negative); Ketones,Urine Negative (Negative); Leukocyte Esterase,Urine Negative (Negative); Nitrite,Urine Negative (Negative); PH,Urine 5.5 (5.0-7.0); Protein,Urine Negative (Neg - Trace); RBC,Urine < 1 /hpf (0-3); Specific Gravity,Urine 1.011 (1.001-1.035); Urobilinogen,Urine Negative mg/dL (0.0-1.0); WBC,Urine 1 /hpf (0-5)
[2025-08-10 11:34] LABS: Alanine Aminotransferase 21 U/L (10-49); Albumin, Serum 4.9 gm/dL (3.4-4.8); Albumin/Globulin Ratio 2.3 (1.2-2.2); Alkaline Phosphatase 72 U/L (46-116); Anion Gap 12 (7-16); Aspartate Amino Transferase 21 U/L (0-34); BUN/Creatinine Ratio 10 Ratio (12-20); Bilirubin,Total 0.5 mg/dL (0.3-1.2); Blood Urea Nitrogen 29 mg/dL (9-23); Calcium 9.7 mg/dL (8.3-10.6); Calcium (Corrected) 9.7 mg/dL (8.5-10.1); Carbon Dioxide 19.7 mMol/L (20.0-31.0); Chloride 107 mMol/L (98-107); Creatinine (Component) 2.8 mg/dL (0.6-1.3); Estimated Creatinine Clearance 12.8 mL/min (>60); Globulin 2.1 gm/dL (2.3-3.5); Glucose 95 mg/dL (74-106); Magnesium 1.5 mg/dL (1.6-2.6); Osmolality,Calculated 283 (275-295); Potassium 4.2 mMol/L (3.4-5.1); Sodium 139 mMol/L (136-145); Total Protein 7.0 gm/dL (5.7-8.2); Troponin I < 0.020 ng/mL (0.0-0.045); eGFR 17 See Note
[2025-08-10 11:37] LABS: Amphetamine/Methamp Scrn,U Negative (Negative); Barbiturate Screen,Urine Negative (Negative); Benzodiazepines Screen,Urine Negative (Negative); Benzoylecgonine Screen, Ur Negative (Negative); Fentanyl Screen,Urine Negative (Negative); Opiate Screen,Urine Positive (Negative); THC Screen,Urine Negative (Negative)
[2025-08-10 11:38] LABS: B-Type Natriuretic Peptide < 20 pg/mL (0-100)
--- NOTE | 2025-08-10 11:47 | PC.NURSE ---
family at bedside.
[2025-08-10] MEDS: SODIUM CHLORIDE 0.9% 1000 ML 1,000 ML 999 ML IV (13:53)
[2025-08-10] MEDS: Magnesium Sulfate 2 GM Ivpb 2 GM/50 ML BAG IV ×2 (13:53→16:11)
[2025-08-10 14:31] LABS: Ammonia 10 uMol/L (11-32)
--- NOTE | 2025-08-10 14:57 | ECHO_ITS ---
Transthoracic Echo Report Ht (in): 66 Wt (lb): 98 Exam Location: Echo Lab Status: Emergency Engineering Professionals: Solange Leyva Indications: Procedure Performed: BP: 110 / 67 HR: 66 Technical Quality: Fair MEASUREMENTS (Male / Female) Normal Values 2D ECHO LV Diastolic Diameter PLAX 3.9 cm 4.2 - 5.9 / 3.9 - 5.3 cm LV Systolic Diameter PLAX 2.7 cm IVS Diastolic Thickness 1.0 cm 0.6 - 1.0 / 0.6 - 0.9 cm LVPW Diastolic Thickness 0.8 cm 0.6 - 1.0 / 0.6 - 0.9 cm LV Relative Wall Thickness 0.5 LVOT Diameter 2.0 cm Aortic Root Diameter 2.7 cm LA Systolic Diameter LX 2.8 cm 3.0 - 4.0 / 2.7 - 3.8 cm LV Ejection Fraction MOD BP 56.3 % >= 55 % LV Cardiac Index MOD BP 2023.4 cm?/min?m? LV Ejection Fraction MOD 4C 64.4 % LV Cardiac Index MOD 4C 2315.8 cm?/min?m? LV Ejection Fraction 4C AL 65.4 % LV Cardiac Index 4C AL 2429.2 cm?/min?m? LV Ejection Fraction MOD 2C 49.7 % LV Cardiac Index MOD 2C 1782.1 cm?/min?m? LV Ejection Fraction 2C AL 55.3 % LV Cardiac Index 2C AL 2063.5 cm?/min?m? LA Volume Index 14.9 cm?/m? 16 - 28 cm?/m? DOPPLER AV Peak Velocity 133.0 cm/s AV Peak Gradient 7.1 mmHg AV Mean Gradient 4.0 mmHg AV Velocity Time Integral 31.6 cm LVOT Peak Velocity 73.2 cm/s LVOT Peak Gradient 2.1 mmHg LVOT Velocity Time Integral 19.3 cm LVOT Cardiac Index 2813.8 cm?/min?m? AV Area Cont Eq vti 1.9 cm? AV Area Cont Eq pk 1.7 cm? MV Area PHT 3.2 cm? Mitral E Point Velocity 72.8 cm/s Mitral A Point Velocity 71.3 cm/s Mitral E to A Ratio 1.0 LV E' Lateral Velocity 7.3 cm/s Mitral E to LV E' Lateral Ratio 10.0 LV E' Septal Velocity 6.9 cm/s Mitral E to LV E' Septal Ratio 10.6 PV Peak Velocity 99.1 cm/s PV Peak Gradient 3.9 mmHg FINDINGS Left Ventricle Normal left ventricular size, wall thickness, systolic function with no obvious regional wall motion abnormalities. Normal left ventricular diastolic filling pattern for age. The ejection fraction is visually estimated at 55-60 %. Right Ventricle The right ventricle is normal in size and systolic function. Left Atrium The left atrium is normal by two-dimensional, color flow and Doppler imaging with no structural abnormalities, no thrombus formation present. Right Atrium The right atrium is normal by two-dimensional imaging, color flow and Doppler imaging with no structural abnormalities, no thrombus formation present. Atrial Septum The interatrial septum appears normal with no evidence of a shunt. Aorta The aorta is normal by two-dimensional, color flow and Doppler interrogation. Mitral Valve The mitral valve is normal by two-dimensional, color flow and Doppler interrogation. There is no significant mitral valve regurgitation, stenosis or prolapse. Aortic Valve The aortic valve is trileaflet and normal by two-dimensional, color flow and Doppler interrogation. There is no significant aortic valve regurgitation. Tricuspid Valve The tricuspid valve is normal by two-dimensional, color flow and Doppler interrogation. There is trace tricuspid valve regurgitation. Pulmonic Valve The pulmonic valve is not well visualized. There is no significant pulmonic valve regurgitation. Vessels Inferior vena cava not well visualized. Pericardium The pericardium is normal by two-dimensional imaging. There is no significant pericardial effusion. CONCLUSIONS Indication: stroke workup bubble study Bubble study negative for any PFO or ASD. Consider BIMAL if high index of clinical suspicion. Normal LV size and function. Normal left ventricular diastolic filling pattern for age. Estimated EF at 55-60 %. The RV is normal in size and systolic function. Trace TR. no pericardial effusion. Selvin Wellington (Electronically Signed) Final Date: 11 August 2025 08:52
--- NOTE | 2025-08-10 15:00 | PC.NURSE ---
called md admit and spoke to obad team and let them know pt has declined and possible wanted to given narcan and abnormal ABG. md aware and will place new orders.
[2025-08-10 15:03] LABS: Thyroid Stimulating Hormone 1.33 uIU/mL (0.55-4.78)
--- NOTE | 2025-08-10 15:07 | ESHP_ITS ---
<Statement entered by Maximo Perez MD - 08/15/25 12:12> I reviewed above note and agree with findings and plans. I have also personally examined the patient with medicine team and went over assessment and plan with medical team including internist and resident physician. Documentation for date of: 08/10/25 Patient is a 70-year-old female with a past medical history of hypertension, hyperlipidemia, obesity on Tirzepatide & Phentermine (?), history of restless leg syndrome who presented to the emergency room altered. Per patient's family, patient has been having increased dizziness over the past several weeks. Patient has been complaining of dizziness that is nonpositional but does worsen upon standing and with sitting position. Family at bedside denied history of seizure or seizure-like activities including tremors or urinary incontinence. Family at bedside denied history of cardiovascular disease including arrhythmias. Denied meth coke or alcohol use disorder. Denied past medical history of stroke. Patient appeared tired and altered this morning and was unable to get out of bed to go to work. Patient's last well-known time was approximately 9 PM. Denies smoking history. Teleneuro consulted from the ER, history more consistent with metabolic encephalopathy. Patient admitted on 08/10/2025 under internal medicine team. Acute metabolic encephalopathy concern for polypharmacy as patient is combining weight loss medication Tirzepatide and phentermine. Unclear side effects of both medications combined together but typically not recommended to combine both medications together versus TIA, consider MRI if no improvement versus dehydration given severe HERO, normal baseline. Medication toxicity cannot be ruled out as patient was found to be opioid positive as well as taking other pain medication including gabapentin and [place]rap[place]. Infectious etiology less likely as UA and chest x-ray unremarkable. Follow-up with B12 levels. Follow-up with EEG. Consider MRI if no improvement by tomorrow. Family at bedside denied any cough or fevers at home. Follow up with urine toxicology including salicylates. HERO may be secondary to intrinsic renal injury as BUN and creatinine less than 10 strict ins and outs, urine lites, renal ultrasound to rule out CKD or obstructive nephropathy. Metabolic acidosis, non-anion ion gap with a lactic acid level of 1.9 and beta hydroxybutyrate negative. Concern for RTA. Strict ins and outs. Gentle re-hydration. Renal U/S. Decrease GFR from 54 about 1 month ago. - The patient's plan was discussed with attending Dr. Chris Gordillo MD PGY2 Internal Medicine HPI History of Present Illness Chief complaint: altered mental status History of present illness: 70 year old female with history of HTN and chronic pain originally presents to the ED for evaluation of confusion and slurred speech that began earlier today. in the ED bedside. According to , Mrs. Arredondo has been experiencing dizziness for last 2 weeks, one specific episode where she felt dizzy and her knees buckled. She was last known well at 9:00AM 08/10. had trouble waking her up in the morning and did not think anything was out of the ordinary then. Mrs. Arredondo was dizzy and appeared confused, mentioned her having more sleepy behavior . Family had decided to bring her into the ED, daughter drove her to the ED. says his does has not had any sick close contacts, no recent travel. 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 Patient admitted for on 08/10/2025 for acute metabolic encephalopathy and HERO. PMH: HTN, HLD, Restless Leg Syndrome, and obesity Past Surgical History: cholecystectomy Past Family History: Unable to provide as patient has is altered. 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 NO Hoarseness, NO sore throat, NO swollen neck. Cardiac: NO Palpitations, NO dyspnea on exertion, NO orthopnea, NO paroxysmal nocturnal dyspnea, NO edema Respiratory: NO Shortness of Breath, NO Wheezing, NO Cough, NO Sputum, NO hemoptysis GI:NO appetite, NO nausea, NO vomiting, NO dysphagia, NO changes in bowel frequency, NO stool color, NO diarrhea, NO constipation, NO hemetemesis, NO hemorrhoids, NO melena, NO hematechezia, NO abdominal pain, NO jaundice Renal: NO frequency, NO hesitancy, NO urgency, NO hematuria, NO nocturia, NO incontinence MSK: NO muscle weakness, NO gout, NO arthritis, NO muscle stiffness Neuro: Dizzy, NO headaches, NO tremors, NO weakness, NO paralysis, NO seizures, NO loss of consciousness, NO numbness. Hem: NO anemia, NO easy bruising/bleeding, NO petechiae, NO purpura Endo: NO heat/cold intolerance, NO excessive sweating, NO polyuria, NO polydipsia, NO polyphagia, NO thyroid problems, NO diabetes Pysch: NO mood, NO anxiety, NO depression Exam Vital Signs Temp Pulse Resp BP Pulse Ox O2 Del Method O2 Flow Rate 97.7 F 70 15 139/76 H 100 Nasal Cannula 5 08/10/25 13:11 08/10/25 13:11 08/10/25 13:11 08/10/25 13:11 08/10/25 13:11 08/10/25 13:11 08/10/25 13:11 Constitutional Constitutional: obese and somnolent Routine HEENT Exam Head: Present normocephalic Eye: Present EOMI and conjunctivae pink; Absent scleral injection, periorbital tenderness or nystagmus ENT: Present mucous membranes moist, oropharynx clear, dentition normal and nares patent Detailed Eye Exam Eyelids: bilateral: normal inspection Pupils: right: nonreactive/fixed and bilateral: dilated Sclerae/Conjunctivae: bilateral: normal inspection Routine Neck Exam Neck: Present supple and trachea midline; Absent thyromegaly, tenderness, swelling, tracheal deviation or meningismus Detailed Chest Wall Exam Chest wall: Absent increased AP diameter, crepitus or rib tenderness Routine Respiratory Exam Respiratory: Present lungs clear, normal breath sounds, no resp distress and CTA bilaterally Routine Cardiovascular Exam Cardiovascular: Present RRR, S1 and S2; Absent murmur, gallop or rubs Routine Abdominal Exam Abdominal: Present soft and normoactive bowel sounds; Absent tenderness or distended Routine Back/Spine/Pelvis Exam Pelvis: Absent SI joint tenderness, sacral swelling or sacral tenderness Routine Skin Exam Skin: Present intact, dry and warm Routine Neurological Exam Neurological: Present alert and altered mental status; Absent moving all extremities or normal speech Comments: NIH: 13 (calculated by MD Calderon) Patient was not able to understand most commands as she kept repeating her name. NIH score may not represent this patient accurately. Results: Labs 08/10/25 11:00 08/10/25 11:00 Labs: Short CBC 08/10/25 Range/Units 11:00 WBC 8.6 (3.6-11.0) Thou/mm3 Hgb 13.8 (12.0-16.0) g/dL Hct 40.7 (36.0-46.0) % Plt Count 295 (140-440) Thou/mm3 BMP 08/10/25 11:00 Sodium 139 Potassium 4.2 Chloride 107 Carbon Dioxide 19.7 L BUN 29 H Creatinine 2.8 H Glucose 95 Calcium 9.7 Cardiac Enzymes 08/10/25 Range/Units 11:00 Troponin I < 0.020 (0.0-0.045) ng/mL Liver Function 08/10/25 Range/Units 11:00 Total Bilirubin 0.5 (0.3-1.2) mg/dL AST 21 (0-34) U/L ALT 21 (10-49) U/L Alkaline Phosphatase 72 (46-116) U/L Albumin 4.9 H (3.4-4.8) gm/dL Urine 08/10/25 Range/Units 11:19 Urine Color Lt-Yellow (Lt Yel-Yel) Urine Clarity Clear (Clear/Hazy) Urine pH 5.5 (5.0-7.0) Ur Specific [place] 1.011 (1.001-1.035) Urine Protein Negative (Neg - Trace) Urine Glucose (UA) Negative (Negative) Quality Measures Quality Measures VTE prophylaxis Advance care planning discussed with:: spouse Medications Home Medications and Allergies Home Medications ?Medication ?Instructions ?Recorded ?Confirmed ?Type amitriptyline 25 mg tablet 25 mg PO DAILY 08/10/2505/28 History amlodipine 5 mg tablet 5 mg PO DAILY 08/10/2508/10 History baclofen 20 mg tablet 20 mg PO HS 08/10/25 5 History cyclobenzaprine 10 mg tablet 10 mg PO HS 08/10/2505/28 History duloxetine 30 mg capsule,delayed 30 mg PO BID 08/10/25 08/10/25 History release ezetimibe 10 mg tablet 10 mg PO DAILY 08/10/2505/28 History gabapentin 300 mg capsule 300 mg PO TID 08/10/2508/10 History hydrocodone 5 mg-acetaminophen 325 0.5 tab PO BID 05/2808/10/25 History mg tablet losartan 100 1 tab PO DAILY 08/10/2505/28 History mg-hydrochlorothiazide 25 mg tablet metoprolol succinate 25 mg 25 mg PO BID 08/10/2508/10 History tablet,extended release 24 hr phentermine 37.5 mg capsule 37.5 mg PO QAM 08/10/25 History ropinirole 0.25 mg tablet 0.25 mg PO HS 08/10/2508/10 History tirzepatide (weight loss) 7.5 7.5 mg subcut QWEEK 05/2808/10/25 History mg/0.5 mL subcutaneous pen injector (Zepbound) tizanidine 4 mg capsule 4 mg PO DAILY 08/10/2508/10 History Allergies Allergy/AdvReac Type Severity Reaction Status Date / Time No Known Allergies Allergy Verified 08/10/25 10:45 Visit Medications Albuterol/Ipratropium (Albuterol/Ipratropium (Duoneb) Rt Meaghan 3 Ml Nebu) 3 ml INH Q2HR PRN PRN Reason: SHORTNESS OF BREATH OR WHEEZE Stop: 09/09/25 14:38 Magnesium Sulfate (Magnesium Sulfate Ivpb) 2 gm in 50 mls @ 25 mls/hr IV X1 ONE Stop: 08/10/25 15:09 Last Admin: 08/10/25 13:53 Dose: 25 mls/hr Discontinued Medications Dextrose (Dextrose 50%-Water Inj 50 Ml Syringe) 25 ml IVP X1 ONE Stop: 08/10/25 10:46 Last Admin: 08/10/25 11:00 Dose: 25 ml Sodium Chloride (Ns) 1,000 mls @ 999 mls/hr IV .Q1H1M ONE Stop: 08/10/25 14:10 Last Infusion: 08/10/25 14:57 Dose: Infused Labetalol HCl (Labetalol Inj 5 Mg/Ml Vial 20 Ml) 10 mg IVP Q15M PRN PRN Reason: HYPER Ondansetron HCl (Ondansetron Inj 2 Mg/Ml Inj 2 Ml) 4 mg IVP Q4HR PRN PRN Reason: NAUSEA OR VOMITING Stop: 09/09/25 10:42 Assessment & Plan Plan This a 70 yo F presenting for altered mental status and dizziness. During the ED course, patient workup yielded negative results on CT non-con head/brain, WBC within normal normals, and renal panel showed a prerenal azotemia most likely due to medication side effect. Admitted for HERO and Acute Metabolic Encephalopathy. #Acute metabolic encephalopathy, unknown etiology #Generalized weakness Patient presented with altered mental status concerning for metabolic cause as patient has extensive medication list including weight loss medication of Zepbound, Phentermine, and other sedating medication such as [place]rapah[place] and Gabapentin versus UTOX given positive for opioids Versus stroke versus infectious cause less likely. Teleneuro consulted. CT head negative UA negative Plan - Consider MRI if no clinical improvement -Echo ordered -Other UTOX levels including acetaminophen and salicylate levels - EEG - B12 -Consider HIV or syphilis if no clinical improvement - Neurology consulted, Dr. Paul Francis, appreciate recommendations #Acute Kidney Injury #Metabolic acidosis, non-anion ion gap Patient presented with acute kidney injury on 08/10/2025 which is a rise greater than 3 and creatinine over the past month. Given drastic change concerning for intrinsic kidney injury as BUN and creatinine levels less than 20. Follow-up with urine electrolytes and FeNa. Concerning for polypharmacy and toxicity. Prerenal cannot be ruled out. CKD less likely given drastic change in creatinine, but obstructive cause cannot be ruled out follow-up with renal ultrasound. Gentle hydration.Metabolic acidosis none anion gap concerning for renal tubular acidosis versus anion gap as it is at the borderline of 12. Lactic acid ruled out. Beta hydroxy ruled out uremia may be contributing. Follow-up with U tox. Cr 2.8 and BUN 29; BUN/Cr ratio 10; eGFR 17 Based on results patient showed eGFR 54 05/2024 Patient may be in acute kidney failure; urine light yellow UA showed no acute infex - Strict I&Os - Monitor AM BMP -UTOX - Ordered Cr urine and electrolytes urine - Ordered renal US bi/lat - Ordered Mg and Phos #Hypertension #Hyperlipidemia Currently holding all hypertensive medication as patient appears normal - tensive. PRN Hydralazine. - hydralazine 10 mg IV PRN for HTN for SBP >180 -Consider resuming Ezetimibe as patient improves - resume home meds #Chronic Pain - Hold sedative medications or meds that effect cognition - Arapahoe, gabapentin, amytriptiline, baclofen, tizanidine and cyclobenzaprine #Obesity Tirzepatide, Zepbound - Monitor BG - daily AM labs #Restless leg syndrome HOLD gabapentin give altered mental status and Ropinirole given altered mental status. Dispo: in-patient med floor Code: Full Code VTE PPx: heparin gtts GI PPx: none Bowel Reg: none Liu: catheter Lines: PIV Discussed case with Dr. Gordillo and Dr. Chris Foy, DO PGY-1
[2025-08-10] MEDS: RINGERS LACTATED 1000 ML 1,000 ML 100 ML IV (15:40)
[2025-08-10 15:41] LABS: Lactate (Lactic Acid) 1.9 mMol/L (0.4-2.0)
[2025-08-10 15:43] LABS: Base Excess -10 (-3-3); HCO3 17 mEq/L (20-26); Inspired O2, VO2 Liters 5 L/min; O2 Saturation 100 % (91-98); PCO2 40 mmHg (32.0-48.0); PO2 245 mmHg (83-108); pH, Arterial 7.24 (7.35-7.45)
[2025-08-10 15:46] LABS: Beta Hydroxybutyrate 0.4 mmol/L (<0.6)
[2025-08-10 15:47] LABS: Allen Test Not Performed; Puncture Site Site Not Noted
[2025-08-10] MEDS: HEPARIN SOD INJ 5000 UNIT/ML VIAL SC ×2 (15:49→22:07)
[2025-08-10 15:59] LABS: Alcohol, Urine Negative (Negative)
[2025-08-10] MEDS: NALOXONE INJ 1 MG/ML SYRINGE 2 ML 2 MG IV (16:11)
--- NOTE | 2025-08-10 16:14 | XR_ITS ---
Examination: Retroperitoneal ultrasound, complete Technique: Multiple high resolution grayscale images of the retroperitoneum obtained, including kidneys and bladder. Exam date and time: August 10, 2025, 1633 hours INDICATIONS: Elevated renal function test on laboratory examination today FINDINGS: Right kidney 9.1 cm renal cortex 1.8 cm Left kidney 9.5 cm renal cortex 2.4 cm Moderate renal scar formation, no hydronephrosis Contracted urinary bladder IMPRESSION: Moderate bilateral renal parenchymal scar formation, no hydronephrosis
--- NOTE | 2025-08-10 16:43 | PC.NURSE ---
admit md at bedside.
[2025-08-10 17:12] LABS: Chloride,Urine Random 50.9 mMol/L (55.0-125.0); Creatinine,Random Urine 75 mg/dL (30-125); Potassium,Urine Random 13 mMol/L (12-62); Sodium,Urine Random 41.9 mMol/L (20.0-110.0)
--- NOTE | 2025-08-10 18:34 | PC.NURSE ---
neurologist at bedside for evaluation.
--- NOTE | 2025-08-10 19:39 | ESPR_ITS ---
Documentation for date of: 08/10/25 Subjective Subjective Interval history: Patient examined at bedside. stated that last interaction with his was this morning before going to work. He noticed that she was more lethargic and needed prompting to wake up. Daughter was at bedside who also provided some history. Stated that family was called from work as this staff was concern for declining health status. Daughter has noticed more medications in patient's back including phenteramine for weight loss. Typically patient is able to complete ADLs without any assistance. Manages her own medications. Family stated that patient has lost about 30 pounds in the past couple of months, has decreased oral intake. A1c from November 2024 was 5.6, triglycerides 198, cholesterol 209, LDL 118 from May 2025. BUN 29, creatinine elevated 2.8 from baseline around 1.0, GFR 17. ABG showed metabolic acidosis pH 7.24, pCO2 40, bicarb 17. Lactic acid 1.9, magnesium 1.5, ammonia 10 troponins negative, BHB 0.4, TSH 1.33. UA negative for infection, U tox negative. Renal ultrasound showed bilateral parenchymal scarring, no hydro nephrosis. At bedside, patient awakens abruptly to sternal rub. She is unable to recognize her daughter and continues to just state her own name. AO x 0. Up with MRI brain, plan for EEG, consider thiamine and B12 levels. Exam Vital Signs Temp Pulse Resp BP Pulse Ox O2 Del Method O2 Flow Rate 97.6 F 66 13 110/67 100 Room Air 5 08/10/25 18:00 08/10/25 18:00 08/10/25 18:00 08/10/25 18:00 08/10/25 18:00 08/10/25 18:00 08/10/25 18:00 Narrative Exam General: Elderly female, somnolent, arouses to sternal, confused on arousal., not following commands HEENT: NCAT, No JVD noted. Mucosa dry. Pupils are equal and reactive to light bilaterally Cardiovascular: Normal S1 and S2. Regular rate and rhythm. Respiratory: Lungs are clear to auscultation bilaterally. No wheezing or crackles heard. Abdomen: Soft, nontender, not distended, normal bowel sounds. Skin: Warm to touch, dry, no rashes noted Musculoskeletal: No gross injuries. Able to move all 4 extremities. No pitting edema Neuro: Alert and oriented x0. Unable to assess CN due to mental status. Just repeats her name, cannot recognize daughter. Objective Labs 08/11/25 05:09 08/11/25 05:09 Labs: Laboratory Results - last 24 hr 08/10/25 08/10/25 08/10/25 11:00 11:19 14:06 WBC 8.6 RBC 4.51 Hgb 13.8 Hct 40.7 MCV 90 MCH 30.6 MCHC 33.9 RDW Std Deviation 42.1 Plt Count 295 Neut % (Auto) 78 Lymph % (Auto) 12 [place] % (Auto) 9 Eos % (Auto) 1 Baso % (Auto) 1 Neut # (Auto) 6.7 Lymph # (Auto) 1.1 [place] # (Auto) 0.7 Eos # (Auto) 0.1 Baso # (Auto) 0.0 Immature Gran # (Auto) 0.03 H Absolute Nucleated RBC 0.00 Immature Gran % 0 Nucleated RBC % 0 PT 10.8 INR 1.0 APTT 26.8 Puncture Site ABG pH ABG pCO2 ABG pO2 ABG HCO3 ABG O2 Saturation ABG Base Excess Oxygen Liter Flow Sodium 139 Potassium 4.2 Chloride 107 Carbon Dioxide 19.7 L Anion Gap 12 BUN 29 H Creatinine 2.8 H Estim Creat Clear Calc 12.8 L eGFR 17 L BUN/Creatinine Ratio 10 L Glucose 95 Calculated Osmolality 283 Lactic Acid Calcium 9.7 Corrected Calcium 9.7 Magnesium 1.5 L Total Bilirubin 0.5 AST 21 ALT 21 Alkaline Phosphatase 72 Ammonia 10 L Troponin I < 0.020 B-Natriuretic Peptide < 20 Total Protein 7.0 Albumin 4.9 H Globulin 2.1 L Albumin/Globulin Ratio 2.3 H Beta-Hydroxybutyrate/Acetoacetate TSH 1.33 Ur Collection Type Catheter Urine Color Lt-Yellow Urine Clarity Clear Urine pH 5.5 Ur Specific [place] 1.011 Urine Protein Negative Urine Glucose (UA) Negative Urine Ketones Negative Urine Blood Negative Urine Nitrite Negative Urine Bilirubin Negative Urine Urobilinogen (Auto) Negative Ur Leukocyte Esterase Negative Urine RBC < 1 Urine WBC 1 Ur Squamous Epith Cells 0 Urine Bacteria None Ur Culture Indicated? Not Indicated Ur Random Creatinine Ur Random Sodium Ur Random Potassium Ur Random Chloride Urine Opiates Screen Positive A Urine Fentanyl Screen Negative Ur Barbiturates Screen Negative U Amphetamin/Meth Scrn Negative U Benzodiazepines Scrn Negative U Cocaine Metab Screen Negative U Marijuana (THC) Screen Negative Urine Alcohol Negative 08/10/25 08/10/25 08/10/25 15:25 15:35 16:53 WBC RBC Hgb Hct MCV MCH MCHC RDW Std Deviation Plt Count Neut % (Auto) Lymph % (Auto) [place] % (Auto) Eos % (Auto) Baso % (Auto) Neut # (Auto) Lymph # (Auto) [place] # (Auto) Eos # (Auto) Baso # (Auto) Immature Gran # (Auto) Absolute Nucleated RBC Immature Gran % Nucleated RBC % PT INR APTT Puncture Site Site Not Noted ABG pH 7.24 L ABG pCO2 40 ABG pO2 245 H ABG HCO3 17 L ABG O2 Saturation 100 H ABG Base Excess -10 L Oxygen Liter Flow 5 Sodium Potassium Chloride Carbon Dioxide Anion Gap BUN Creatinine Estim Creat Clear Calc eGFR BUN/Creatinine Ratio Glucose Calculated Osmolality Lactic Acid 1.9 Calcium Corrected Calcium Magnesium Total Bilirubin AST ALT Alkaline Phosphatase Ammonia Troponin I B-Natriuretic Peptide Total Protein Albumin Globulin Albumin/Globulin Ratio Beta-Hydroxybutyrate/Acetoacetate 0.4 TSH Ur Collection Type Urine Color Urine Clarity Urine pH Ur Specific [place] Urine Protein Urine Glucose (UA) Urine Ketones Urine Blood Urine Nitrite Urine Bilirubin Urine Urobilinogen (Auto) Ur Leukocyte Esterase Urine RBC Urine WBC Ur Squamous Epith Cells Urine Bacteria Ur Culture Indicated? Ur Random Creatinine 75 Ur Random Sodium 41.9 Ur Random Potassium 13 Ur Random Chloride 50.9 L Urine Opiates Screen Urine Fentanyl Screen Ur Barbiturates Screen U Amphetamin/Meth Scrn U Benzodiazepines Scrn U Cocaine Metab Screen U Marijuana (THC) Screen Urine Alcohol ABG Interpretation ABG results: 08/10/25 15:35 ABG pH 7.24 L ABG pCO2 40 ABG pO2 245 H ABG HCO3 17 L ABG O2 Saturation 100 H ABG Base Excess -10 L Quality Measures Quality Measures VTE prophylaxis Advance care planning discussed with:: child Assessment & Plan Assessment Current Active Medications: Generic Name Dose Route Start Last Admin Trade Name Freq PRN Reason Stop Dose Admin Acetaminophen 650 mg 08/10/25 14:52 Acetaminophen 325 Mg Tablet PO 09/09/25 14:51 Q6H PRN Fever >100.0 or pain mild 1-3 Albuterol/Ipratropium 3 ml 08/10/25 14:39 Albuterol/Ipratropium (Duoneb) Rt Meaghan 3 Ml Nebu INH 09/09/25 14:38 Q2HR PRN SHORTNESS OF BREATH OR WHEEZE Dextrose 50 ml 08/10/25 14:57 Dextrose 50%-Water Inj 50 Ml Syringe IV 09/09/25 14:56 Q15MIN PRN BG <50 OR BG <70 & pt unresponsive Glucagon 1 mg 08/10/25 14:57 Glucagon Inj 1 Mg Vial IM Q15MIN PRN BG <70, and no IV access Heparin Sodium (Porcine) 5,000 unit 08/10/25 15:00 08/10/25 15:49 Heparin Sod Inj 5000 Unit/Ml Vial SC 08/24/25 14:59 5,000 unit Q8HR MARGARETTE Administration Hydralazine HCl 10 mg 08/10/25 15:02 Hydralazine Inj 20 Mg/Ml Vial IVP 09/09/25 15:01 Q4H PRN SBP > 180 Lactated Ringer's 1,000 mls @ 100 mls/hr 08/10/25 15:00 08/10/25 15:40 Lactated Ringers IV 09/09/25 14:59 100 mls/hr .Q10H MARGARETTE Administration Insulin Human Lispro 0 unit 08/10/25 15:15 08/10/25 18:52 Insulin Lispro (Admelog) 1 Unit/0.01 Ml Unit SC 09/09/25 15:14 Not Given Q6HR [facility] Protocol Ondansetron HCl 4 mg 08/10/25 14:52 Ondansetron Inj 2 Mg/Ml Inj 2 Ml IVP 09/09/25 14:51 Q6H PRN NAUSEA OR VOMITING Protocol Plan Patient is 70 yr female with PMH of neuropathy, chronic pain, hypertension, hyperlipidemia was admitted to ED due to altered mental status. Neurology consulted and patient admitted for further workup. #Acute encephalopathy DDx: stroke, polypharmacy, hypomagnesemia, seizure Ammonia WNL, no uremia, other electrolytes normal. NIHSS score 10, CT head negative for acute hemorrhage, CTA negative for LVO or stenosis. A1c from November 2024 was 5.6, triglycerides 198, cholesterol 209, LDL 118 from May 2025. BUN 29, creatinine elevated 2.8 from baseline around 1.0, GFR 17. ABG showed metabolic acidosis pH 7.24, pCO2 40, bicarb 17. Lactic acid 1.9, magnesium 1.5, ammonia 10 troponins negative, BHB 0.4, TSH 1.33. UA negative for infection, U tox negative. Renal ultrasound showed bilateral parenchymal scarring, no hydro nephrosis. -Follow up with brain MRI -EEG -thiamine -B12 -seizure precaution - Neurochecks q4hr #Metabolic acidosis #HERO #Chronic pain #Hypertension #Obesity #RLS Primary care team to manage above conditions and ongoing care needs. The patient's management plan was discussed with my attending physician Dr. Leong. Malina Bauman, PGY-2 Attending Provider Attestation/Addendum I personally have seen and examined the patient at the bedside and I agree with resident's findings, assessment and plan of care. Patient presenting symptoms are most consistent with metabolic encephalopathy. Follow-up with MRI brain to look for structural causes, EEG to rule out nonconvulsive status and rest of the labs. Discussed in detail with the patient's daughter at the bedside.
[2025-08-10 21:06] LABS: Acetaminophen 31.6 mcg/mL (10.0-20.0); Creatine Kinase 30 U/L (34-171)
[2025-08-10 21:11] LABS: Salicylate 64.0 mg/dL
[2025-08-10 22:15] LABS: Vitamin B12 532 pg/mL (211-911)
[2025-08-11] VITALS (9 sets, daily range): BP systolic 128–180; BP diastolic 77–117; PULSE 66–106; RESP 15–28; TEMP 36.1–36.5; O2SAT 94–98; BMI 12.0; BMI 35.1
[2025-08-11] MEDS: RINGERS LACTATED 1000 ML 1,000 ML 100 ML IV ×2 (03:13→12:45)
[2025-08-11] MEDS: HEPARIN SOD INJ 5000 UNIT/ML VIAL SC ×3 (05:33→21:21)
[2025-08-11 06:04] LABS: Basophils # (Auto) 0.0 Thou/mm3 (0.0-0.2); Basophils % (Auto) 1 % (0-2.5); Eosinophils # (Auto) 0.0 Thou/mm3 (0.0-0.5); Eosinophils % (Auto) 1 % (0-10); Hematocrit 36.6 % (36.0-46.0); Hemoglobin 12.6 g/dL (12.0-16.0); Immature Granulocytes Auto 0.01 Thou/mm3 (0.00-0.00); Lymphocytes # (Auto) 0.8 Thou/mm3 (1.0-4.8); Lymphocytes % (Auto) 15 % (10-50); Mean Corpuscular HGB Conc 34.4 g/dl (31.0-37.0); Mean Corpuscular Hemoglobin 31.0 pg (25.0-35.0); Mean Corpuscular Volume 90 fL (80-100); Monocytes # (Auto) 0.5 Thou/mm3 (0.0-0.8); Monocytes % (Auto) 9 % (0-12); Neutrophils # (Auto) 4.3 Thou/mm3 (1.8-7.7); Neutrophils % (Auto) 75 % (37-80); Nucleated Red Blood Cell # 0.00 Thou/mm3 (0.00-0.00); Nucleated Red Blood Cell % 0 /100 WBC (0); Platelet Count 226 Thou/mm3 (140-440); RDW Standard Deviation 41.5 fL (36.4-46.3); Red Blood Count 4.06 Miln/mm3 (4.00-5.20); White Blood Count 5.7 Thou/mm3 (3.6-11.0)
[2025-08-11 06:35] LABS: Glucose Estimated Average 105 mg/dL (80-131); Hemoglobin A1C 5.3 % Hgb (4.8-6.0)
[2025-08-11 06:36] LABS: Anion Gap 11 (7-16); BUN/Creatinine Ratio 14 Ratio (12-20); Blood Urea Nitrogen 26 mg/dL (9-23); Calcium 9.3 mg/dL (8.3-10.6); Carbon Dioxide 23.4 mMol/L (20.0-31.0); Cardiac Risk Estimate 4.0 RATIO (3.7-5.6); Chloride 110 mMol/L (98-107); Cholesterol 152 mg/dL (132-200); Creatinine (Component) 1.8 mg/dL (0.6-1.3); Estimated Creatinine Clearance 33.6 mL/min (>60); Glucose 92 mg/dL (74-106); HDL Cholesterol 38 mg/dL (40-60); LDL Cholesterol,Calculated 74 mg/dL (0-130); Magnesium 2.6 mg/dL (1.6-2.6); Osmolality,Calculated 291 (275-295); Phosphorous 3.5 mg/dL (2.4-5.1); Potassium 4.0 mMol/L (3.4-5.1); Sodium 144 mMol/L (136-145); Triglycerides 201 mg/dL (30-150); eGFR 30 See Note
--- NOTE | 2025-08-11 09:21 | PCS.ST ---
Swallow Evaluation completed. See report for details. Functional swallow however not safe for PO diet d/t poor mentation and inability to sustain level of alertness. ST will follow for diet readiness.
--- NOTE | 2025-08-11 10:22 | PC.SS ---
PLASMA SPECIALIST conducted bedside contact with the patient conduct initial assessment and to discuss discharge planning.? At bedside with patient was spouse, Tr Arredondo .? Information obtained from patient?s spouse due to patient being altered.? Patient resides at home with spouse, Tr Arredondo.? Patient remains employed.? Patient does not utilize any form of DME to assist with ambulation.? Patient does not utilize home oxygen.? Patient is currently on 3L oxygen.? Patient possesses the ability to complete ADL?s independently.? Patient?s medical surrogate decision maker is spouse, Tr Arredondo.? Patient?s PCP is Dr. Bonner.? Patient?s neurologist is Dr. Trevino.? Patient?s pain physician is Dr. Owusu.? Patient does not participate with dialysis.? Patient utilizes [facility] for medication services.? Plan is for the patient to return home at the time of discharge.? If patient requires home oxygen, no preferred vendor identified.? If home health is recommended no preferred agency identified.? Family will provide transportation on behalf of the patient.? No further discharge needs identified by the patient.? No further intervention required at this time, outreach and education social worker will be available to address any further concerns.? Next of Kin: Tr Arredondo D/C Plan: Home
[2025-08-11 11:28] LABS: Alanine Aminotransferase 17 U/L (10-49); Albumin, Serum 4.1 gm/dL (3.4-4.8); Albumin/Globulin Ratio 2.6 (1.2-2.2); Alkaline Phosphatase 64 U/L (46-116); Anion Gap 11 (7-16); Aspartate Amino Transferase 17 U/L (0-34); BUN/Creatinine Ratio 15 Ratio (12-20); Bilirubin,Direct 0.1 mg/dL (0.0-0.3); Bilirubin,Total 0.3 mg/dL (0.3-1.2); Blood Urea Nitrogen 24 mg/dL (9-23); Calcium 9.2 mg/dL (8.3-10.6); Calcium (Corrected) 9.2 mg/dL (8.5-10.1); Carbon Dioxide 22.6 mMol/L (20.0-31.0); Chloride 111 mMol/L (98-107); Creatinine (Component) 1.6 mg/dL (0.6-1.3); Estimated Creatinine Clearance 37.7 mL/min (>60); Globulin 1.6 gm/dL (2.3-3.5); Glucose 94 mg/dL (74-106); Osmolality,Calculated 292 (275-295); Potassium 3.9 mMol/L (3.4-5.1); Salicylate < 3.0 mg/dL; Sodium 145 mMol/L (136-145); Total Protein 5.7 gm/dL (5.7-8.2); eGFR 34 See Note
[2025-08-11] MEDS: THIAMINE INJ 500 MG in SODIUM CHLORIDE 0.9% 100 ML 205 MG IV ×3 (11:31→21:21)
[2025-08-11 11:51] LABS: Base Excess -6 (-3-3); HCO3 20 mEq/L (20-26); O2 Saturation 99 % (91-98); PCO2 40 mmHg (32.0-48.0); PO2 123 mmHg (83-108); pH, Arterial 7.31 (7.35-7.45)
[2025-08-11 11:52] LABS: Allen Test Performed/OK; Inspired O2, VO2 Liters 3 L/min; Puncture Site Right Radial
[2025-08-11] MEDS: ACETYLCYSTEINE IV ×3 (12:25→19:23)
[2025-08-11] MEDS: WATER ACETYLCYSTEINE IV ×3 (12:25→19:23)
[2025-08-11] MEDS: DEXTROSE 5% IV ×3 (12:25→19:23)
[2025-08-11 12:50] LABS: Salicylate < 3.0 mg/dL
[2025-08-11 13:25] LABS: Albumin, Serum 4.0 gm/dL (3.4-4.8); Anion Gap 10 (7-16); BUN/Creatinine Ratio 11 Ratio (12-20); Blood Urea Nitrogen 16 mg/dL (9-23); Calcium 9.1 mg/dL (8.3-10.6); Calcium (Corrected) 9.1 mg/dL (8.5-10.1); Carbon Dioxide 19.4 mMol/L (20.0-31.0); Chloride 112 mMol/L (98-107); Creatinine (Component) 1.5 mg/dL (0.6-1.3); Estimated Creatinine Clearance 40.3 mL/min (>60); Glucose 103 mg/dL (74-106); Osmolality,Calculated 282 (275-295); Phosphorous 3.4 mg/dL (2.4-5.1); Potassium 4.3 mMol/L (3.4-5.1); Sodium 141 mMol/L (136-145); eGFR 37 See Note
--- NOTE | 2025-08-11 14:38 | ESPR_ITS ---
<Statement entered by Maximo Perez MD - 08/15/25 12:13> I reviewed above note and agree with findings and plans. I have also personally examined the patient with medicine team and went over assessment and plan with medical team including fashion styling intern and resident physician. Documentation for date of: 08/11/25 Overnight, concern for salicylates toxicity, 64.0 and Acetaminophen. Poison control called. Recommended to keep trending salicylates and repeat renal panel. Start patient on acetylcysteine. Patient's HERO likely intrinsic injury from salicylates can, continues to improve. Lactated Ringer's DC'd as patient was started on acetylcysteine which is an IV--> likely causing hypertension. Labetalol added as needed. Thiamine started, given past medical history of deficiency. Pending MRI. Pending neuro recs. - The patient's plan was discussed with attending Dr. Chris Gordillo MD PGY2 Internal Medicine Subjective Subjective Interval history: NAEON, reviewed recent labs and imaging. Renal chemistry: electrolytes shows normal chemistries for past 2 days, CBC wnl for last 2 days, Cr downtrending 2.8 --> 1.8. BUN 29 --> 26. ABG shows improvement in acidosis, pH 7.24 --> 7.31. LFTs this AM were within normal limits AST 17, ALT 17, and Alk Phos 64. Salicylate levels downtrending to < 3, from 64.0, pending acetaminophen level 1008 AM. At bedside, patient awakens abruptly to sternal rub. She is unable to recognize her family near bedside, when woken up patient repeats her name Giovanna Arredondo or Cinthia. AO x 1. Spoke to family at bedside about plan. IM team has informed family of contacting poison control. Dialysis is being considered, however IM team is trending BMP, salicylate and acetaminophen levels. Discussed with family if trajectory of labs improves then dialysis not considered. Pending MRI brain, plan for EEG, administered thiamine IV, and B12 returned normal. 10:05 08/11 Poison Control: Contacted poison control recommended q2hr salicylate levels, liver panel, acetaminophen levels, administration of n-acetylcysteine, and consulting nephrology. Poison control also recommended questioning patient further about psych history and peritinent questions to rule-out inrentional overdose. Exam Vital Signs Temp Pulse Resp BP Pulse Ox O2 Del Method O2 Flow Rate 97.0 F 106 H 28 H 158/77 H 97 Nasal Cannula 3 08/11/25 12:00 08/11/25 12:00 08/11/25 12:00 08/11/25 12:00 08/11/25 12:00 08/11/25 12:00 08/11/25 12:00 Narrative Exam General: Somnolent, appears confused, and supine supine in bed Eye: Pupils dilated and exhibit sluggish light reflex, EOMI, normal conjunctiva, no scleral icterus HENT: Normocephalic, atraumatic, dry oral mucus membranes, lips and mouth dried and peeling Neck: Supple, non-tender, no JVD, no lymphadenopathy Lungs: Clear to auscultation bilaterally, non-labored respirations, symmetric chest rise, no use of accessory muscles, breaths through mouth, spO2 99% on 3L Heart: Normal S1 and S2, no S3 or S4 appreciated. Normal rate and regular rhythm, no murmurs, rubs gallops, or edema. Peripheral pulses intact bilaterally, capillary refill brisk distally Abdomen: Soft, non-tender, non-distended, normal bowel sounds. No guarding or rebound tenderness. Musculoskeletal: Grossly moves all extremities. Skin: Skin is warm, dry, no rashes or lesions. Neurologic: AOx1. Unable to assess CN due to mental status. Just repeats her name, cannot recognize family in room. No signs of meningeal irritation noted. Psychiatric: Cannot assess due to patient being altered Objective Labs 08/11/25 05:09 08/11/25 12:16 Labs: Laboratory Results - last 24 hr 08/10/25 08/10/25 08/10/25 11:19 14:06 15:25 WBC RBC Hgb Hct MCV MCH MCHC RDW Std Deviation Plt Count Neut % (Auto) Lymph % (Auto) [place] % (Auto) Eos % (Auto) Baso % (Auto) Neut # (Auto) Lymph # (Auto) [place] # (Auto) Eos # (Auto) Baso # (Auto) Immature Gran # (Auto) Absolute Nucleated RBC Immature Gran % Nucleated RBC % Puncture Site ABG pH ABG pCO2 ABG pO2 ABG HCO3 ABG O2 Saturation ABG Base Excess Oxygen Liter Flow Sodium Potassium Chloride Carbon Dioxide Anion Gap BUN Creatinine Estim Creat Clear Calc eGFR BUN/Creatinine Ratio Glucose Estimated Ave Glu mg/dL Hemoglobin A1c Calculated Osmolality Lactic Acid 1.9 Calcium Corrected Calcium Phosphorus Magnesium Total Bilirubin Direct Bilirubin AST ALT Alkaline Phosphatase Total Creatine Kinase 30 L Total Protein Albumin Globulin Albumin/Globulin Ratio Triglycerides Cholesterol LDL Cholesterol, Calc HDL Cholesterol Cholesterol/HDL Ratio Vitamin B12 Beta-Hydroxybutyrate/Acetoacetate 0.4 TSH 1.33 Ur Random Creatinine Ur Random Sodium Ur Random Potassium Ur Random Chloride Salicylates 64.0 H* Acetaminophen 31.6 H Urine Alcohol Negative 08/10/25 08/10/25 08/10/25 15:35 16:53 20:39 WBC RBC Hgb Hct MCV MCH MCHC RDW Std Deviation Plt Count Neut % (Auto) Lymph % (Auto) [place] % (Auto) Eos % (Auto) Baso % (Auto) Neut # (Auto) Lymph # (Auto) [place] # (Auto) Eos # (Auto) Baso # (Auto) Immature Gran # (Auto) Absolute Nucleated RBC Immature Gran % Nucleated RBC % Puncture Site Site Not Noted ABG pH 7.24 L ABG pCO2 40 ABG pO2 245 H ABG HCO3 17 L ABG O2 Saturation 100 H ABG Base Excess -10 L Oxygen Liter Flow 5 Sodium Potassium Chloride Carbon Dioxide Anion Gap BUN Creatinine Estim Creat Clear Calc eGFR BUN/Creatinine Ratio Glucose Estimated Ave Glu mg/dL Hemoglobin A1c Calculated Osmolality Lactic Acid Calcium Corrected Calcium Phosphorus Magnesium Total Bilirubin Direct Bilirubin AST ALT Alkaline Phosphatase Total Creatine Kinase Total Protein Albumin Globulin Albumin/Globulin Ratio Triglycerides Cholesterol LDL Cholesterol, Calc HDL Cholesterol Cholesterol/HDL Ratio Vitamin B12 532 Beta-Hydroxybutyrate/Acetoacetate TSH Ur Random Creatinine 75 Ur Random Sodium 41.9 Ur Random Potassium 13 Ur Random Chloride 50.9 L Salicylates Acetaminophen Urine Alcohol 08/11/25 08/11/25 08/11/25 05:09 10:48 11:40 WBC 5.7 RBC 4.06 Hgb 12.6 Hct 36.6 MCV 90 MCH 31.0 MCHC 34.4 RDW Std Deviation 41.5 Plt Count 226 D Neut % (Auto) 75 Lymph % (Auto) 15 [place] % (Auto) 9 Eos % (Auto) 1 Baso % (Auto) 1 Neut # (Auto) 4.3 Lymph # (Auto) 0.8 L [place] # (Auto) 0.5 Eos # (Auto) 0.0 Baso # (Auto) 0.0 Immature Gran # (Auto) 0.01 H Absolute Nucleated RBC 0.00 Immature Gran % 0 Nucleated RBC % 0 Puncture Site Right Radial ABG pH 7.31 L ABG pCO2 40 ABG pO2 123 H D ABG HCO3 20 ABG O2 Saturation 99 H ABG Base Excess -6 L Oxygen Liter Flow 3 Sodium 144 145 Potassium 4.0 3.9 Chloride 110 H 111 H Carbon Dioxide 23.4 22.6 Anion Gap 11 11 BUN 26 H 24 H Creatinine 1.8 H D 1.6 H Estim Creat Clear Calc 33.6 L 37.7 L eGFR 30 L 34 L BUN/Creatinine Ratio 14 15 Glucose [address] Glu mg/dL 105 Hemoglobin A1c 5.3 Calculated Osmolality 291 292 Lactic Acid Calcium 9.3 9.2 Corrected Calcium 9.2 Phosphorus 3.5 Magnesium 2.6 Total Bilirubin 0.3 Direct Bilirubin 0.1 AST 17 ALT 17 Alkaline Phosphatase 64 Total Creatine Kinase Total Protein 5.7 Albumin 4.1 D Globulin 1.6 L Albumin/Globulin Ratio 2.6 H Triglycerides 201 H Cholesterol 152 LDL Cholesterol, Calc 74 HDL Cholesterol 38 L Cholesterol/HDL Ratio 4.0 Vitamin B12 Beta-Hydroxybutyrate/Acetoacetate TSH Ur Random Creatinine Ur Random Sodium Ur Random Potassium Ur Random Chloride Salicylates < 3.0 Acetaminophen Urine Alcohol 08/11/25 12:16 WBC RBC Hgb Hct MCV MCH MCHC RDW Std Deviation Plt Count Neut % (Auto) Lymph % (Auto) [place] % (Auto) Eos % (Auto) Baso % (Auto) Neut # (Auto) Lymph # (Auto) [place] # (Auto) Eos # (Auto) Baso # (Auto) Immature Gran # (Auto) Absolute Nucleated RBC Immature Gran % Nucleated RBC % Puncture Site ABG pH ABG pCO2 ABG pO2 ABG HCO3 ABG O2 Saturation ABG Base Excess Oxygen Liter Flow Sodium 141 Potassium 4.3 Chloride 112 H Carbon Dioxide 19.4 L Anion Gap 10 BUN 16 Creatinine 1.5 H Estim Creat Clear Calc 40.3 L eGFR 37 L BUN/Creatinine Ratio 11 L Glucose [address] Glu mg/dL Hemoglobin A1c Calculated Osmolality 282 Lactic Acid Calcium 9.1 Corrected Calcium 9.1 Phosphorus 3.4 Magnesium Total Bilirubin Direct Bilirubin AST ALT Alkaline Phosphatase Total Creatine Kinase Total Protein Albumin 4.0 Globulin Albumin/Globulin Ratio Triglycerides Cholesterol LDL Cholesterol, Calc HDL Cholesterol Cholesterol/HDL Ratio Vitamin B12 Beta-Hydroxybutyrate/Acetoacetate TSH Ur Random Creatinine Ur Random Sodium Ur Random Potassium Ur Random Chloride Salicylates < 3.0 Acetaminophen Urine Alcohol ABG Interpretation ABG results: 08/10/25 08/11/25 15:35 11:40 ABG pH 7.24 L 7.31 L ABG pCO2 40 40 ABG pO2 245 H 123 H D ABG HCO3 17 L 20 ABG O2 Saturation 100 H 99 H ABG Base Excess -10 L -6 L Quality Measures Quality Measures VTE prophylaxis Advance care planning discussed with:: spouse Assessment & Plan Assessment Current Active Medications: Generic Name Dose Route Start Last Admin Trade Name Freq PRN Reason Stop Dose Admin Acetaminophen 650 mg 08/10/25 14:52 Acetaminophen 325 Mg Tablet PO 09/09/25 14:51 Q6H PRN Fever >100.0 or pain mild 1-3 Albuterol/Ipratropium 3 ml 08/10/25 14:39 Albuterol/Ipratropium (Duoneb) Rt Meaghan 3 Ml Nebu INH 09/09/25 14:38 Q2HR PRN SHORTNESS OF BREATH OR WHEEZE Dextrose 50 ml 08/10/25 14:57 Dextrose 50%-Water Inj 50 Ml Syringe IV 09/09/25 14:56 Q15MIN PRN BG <50 OR BG <70 & pt unresponsive Glucagon 1 mg 08/10/25 14:57 Glucagon Inj 1 Mg Vial IM Q15MIN PRN BG <70, and no IV access Heparin Sodium (Porcine) 5,000 unit 08/10/25 15:00 08/11/25 05:33 Heparin Sod Inj 5000 Unit/Ml Vial SC 08/24/25 14:59 5,000 unit Q8HR MARGARETTE Administration Hydralazine HCl 10 mg 08/10/25 15:02 Hydralazine Inj 20 Mg/Ml Vial IVP 09/09/25 15:01 Q4H PRN SBP > 180 Lactated Ringer's 1,000 mls @ 100 mls/hr 08/10/25 15:00 08/11/25 12:45 Lactated Ringers IV 09/09/25 14:59 100 mls/hr .Q10H MARGARETTE Administration Thiamine HCl 500 mg/ Sodium 105 mls @ 205 mls/hr 08/11/25 10:00 10/08/25 11:31 Chloride IV 08/13/25 09:59 205 mls/hr TID MARGARETTE Administration Acetylcysteine 14,250 mg/ 271.25 mls @ 271.25 mls/hr 08/11/25 10:37 08/11/25 12:25 Dextrose IV 09/10/25 10:36 271.25 mls/hr .BY DURATION MARGARETTE Administration Acetylcysteine 4,750 mg/ 523.75 mls @ 130.937 mls/hr 08/11/25 10:37 Dextrose IV 09/10/25 10:36 .BY DURATION MARGARETTE Acetylcysteine 9,500 mg/ 1,047.5 mls @ 65.469 mls/hr 08/11/25 10:37 Dextrose IV 09/10/25 10:36 .BY DURATION MARGARETTE Insulin Human Lispro 0 unit 08/10/25 15:15 08/11/25 12:30 Insulin Lispro (Admelog) 1 Unit/0.01 Ml Unit SC 09/09/25 15:14 Not Given Q6HR [facility] Protocol Ondansetron HCl 4 mg 08/10/25 14:52 Ondansetron Inj 2 Mg/Ml Inj 2 Ml IVP 09/09/25 14:51 Q6H PRN NAUSEA OR VOMITING Protocol Plan This a 70 yo F presenting for altered mental status and dizziness. During the ED course, patient workup yielded negative results on CT non-con head/brain, WBC within normal normals, and renal panel showed a prerenal azotemia most likely due to medication side effect. Admitted for HERO and Acute Metabolic Encephalopathy. #Acute metabolic encephalopathy, unknown etiology #Generalized weakness Patient presented with altered mental status concerning for metabolic cause as patient has extensive medication list including weight loss medication of Zepbound, Phentermine, and other sedating medication such as Gering and Gabapentin vs UTOX given positive for opioids vs stroke versus infectious cause less likely. Teleneuro consulted. CT head negative UA negative Plan - MRI placed by neuro team - Echo ordered - Salicylate levels downtrended from 64.0 to < 3.0; pending AM acetamniphen level - Poison control contacted at 10:05, following recommendations until patient cleared - EEG pending - B12 retuned normal - Given thiamine 500mg IM TID - Consider HIV or syphilis if no clinical improvement - Neurology consulted, Dr. Paul Francis, appreciate recommendations #Acute Kidney Injury #Metabolic acidosis, non-anion ion gap Patient presented with acute kidney injury on 08/10/2025 which is a rise greater than 3 and creatinine over the past month. Given drastic change concerning for intrinsic kidney injury as BUN and creatinine levels less than 20. Follow-up with urine electrolytes and FeNa. Concerning for polypharmacy and toxicity. Prerenal cannot be ruled out. CKD less likely given drastic change in creatinine, but obstructive cause cannot be ruled out follow-up with renal ultrasound. Gentle hydration.Metabolic acidosis none anion gap concerning for renal tubular acidosis versus anion gap as it is at the borderline of 12. Lactic acid ruled out. Beta hydroxy ruled out uremia may be contributing. Follow-up with U tox. Cr 2.8 -> 1.8 --> 1.6 --> 1.5 and BUN 29 --> 26 --> 24 --> 16; eGFR 17 --> 30 --> 34 --> 37 Based on results patient showed eGFR 54 05/2024 urine light yellow UA showed no acute infex - Strict I&Os - Monitor AM BMP - UTOX showed opiates - Cr urine and electrolytes urine returned largely normal - Mg and Phos returned normal #Hypertension #Hyperlipidemia Currently holding all hypertensive medication as patient appears normotensive. PRN Hydralazine. - hydralazine 10 mg IV PRN for HTN for SBP >180 - Gave a spot dose of IV labetolol for HTN with tachycardia and decreased maintenance fluids to a rate of 60. - consider resuming Ezetimibe as patient improves - resume home meds #Chronic Pain - Hold sedative medications or meds that effect cognition - Gering, gabapentin, amytriptiline, baclofen, tizanidine and cyclobenzaprine #Obesity Tirzepatide, Zepbound - Monitor BG - daily AM labs #Restless leg syndrome HOLD gabapentin give altered mental status and Ropinirole given altered mental status. Dispo: in-patient med floor Code: Full Code VTE PPx: heparin gtts GI PPx: none Bowel Reg: none Liu: catheter Lines: PIV Discussed case with Dr. Gordillo and Dr. Chris Foy, DO PGY-1
--- NOTE | 2025-08-11 15:03 | PC.SS ---
Rounding Note: MRI is pending. Neurology consulting. Poison control has been contacted.
[2025-08-11 15:42] LABS: Salicylate < 3.0 mg/dL
[2025-08-11] MEDS: RINGERS LACTATED 1000 ML 1,000 ML 60 ML IV (16:18)
--- NOTE | 2025-08-11 16:41 | PD.RESPRO ---
Documentation for date of: 08/11/25 Subjective Subjective Interval history: Patient examined at bedside. Son, daughter, , niece all present as well. Family at bedside believe that patient's mentation is improving since her time of admission in the ED. On physical exam, patient continues to repeatedly say hello and repeats her name. She is unable to recognize her son and daughter. Urine cultures were negative for any signs of infection, bubble study on echo was negative as well. No ultrasound showed bilateral parenchymal scarring. Today her kidney function is improving with creatinine down trended to 1.8, GFR 30. B12 resulted normal limits at 532. U tox was negative for illicit drug use but returned positive for elevated salicylate level of 64. Family was updated of this finding and stated that patient does not take any known aspirin. Primary care team contacted poison control. Recommend to trend levels q2hr. They have downtrended to < 3. Nephrology was consulted. Considering possible error. We will wait for EEG and MRI results as further workup for her acute encephalopathy. Exam Vital Signs Temp Pulse Resp BP Pulse Ox O2 Del Method O2 Flow Rate 97.0 F 106 H 28 H 158/77 H 97 Nasal Cannula 3 08/11/25 12:00 08/11/25 12:00 08/11/25 12:00 08/11/25 12:00 08/11/25 12:00 08/11/25 12:00 08/11/25 12:00 Narrative Exam General: Elderly female, somnolent, arouses to sternal, confused on arousal., not following commands HEENT: NCAT, No JVD noted. Mucosa dry. Pupils are equal and reactive to light bilaterally Cardiovascular: Normal S1 and S2. Regular rate and rhythm. Respiratory: Lungs are clear to auscultation bilaterally. No wheezing or crackles heard. Abdomen: Soft, nontender, not distended, normal bowel sounds. Skin: Warm to touch, dry, no rashes noted Musculoskeletal: No gross injuries. Able to move all 4 extremities spontaneously but not to verbal command. No pitting edema Neuro: Alert and oriented x0. Unable to assess CN due to mental status. Just repeats her name, cannot recognize daughter. Objective Labs 08/11/25 05:09 08/11/25 12:16 Labs: Laboratory Results - last 24 hr 08/10/25 08/10/25 08/10/25 15:25 16:53 20:39 WBC RBC Hgb Hct MCV MCH MCHC RDW Std Deviation Plt Count Neut % (Auto) Lymph % (Auto) [place] % (Auto) Eos % (Auto) Baso % (Auto) Neut # (Auto) Lymph # (Auto) [place] # (Auto) Eos # (Auto) Baso # (Auto) Immature Gran # (Auto) Absolute Nucleated RBC Immature Gran % Nucleated RBC % Puncture Site ABG pH ABG pCO2 ABG pO2 ABG HCO3 ABG O2 Saturation ABG Base Excess Oxygen Liter Flow Sodium Potassium Chloride Carbon Dioxide Anion Gap BUN Creatinine Estim Creat Clear Calc eGFR BUN/Creatinine Ratio Glucose Estimated Ave Glu mg/dL Hemoglobin A1c Calculated Osmolality Calcium Corrected Calcium Phosphorus Magnesium Total Bilirubin Direct Bilirubin AST ALT Alkaline Phosphatase Total Creatine Kinase 30 L Total Protein Albumin Globulin Albumin/Globulin Ratio Triglycerides Cholesterol LDL Cholesterol, Calc HDL Cholesterol Cholesterol/HDL Ratio Vitamin B12 532 Ur Random Creatinine 75 Ur Random Sodium 41.9 Ur Random Potassium 13 Ur Random Chloride 50.9 L Salicylates 64.0 H* Acetaminophen 31.6 H 08/11/25 08/11/25 08/11/25 05:09 10:48 11:40 WBC 5.7 RBC 4.06 Hgb 12.6 Hct 36.6 MCV 90 MCH 31.0 MCHC 34.4 RDW Std Deviation 41.5 Plt Count 226 D Neut % (Auto) 75 Lymph % (Auto) 15 [place] % (Auto) 9 Eos % (Auto) 1 Baso % (Auto) 1 Neut # (Auto) 4.3 Lymph # (Auto) 0.8 L [place] # (Auto) 0.5 Eos # (Auto) 0.0 Baso # (Auto) 0.0 Immature Gran # (Auto) 0.01 H Absolute Nucleated RBC 0.00 Immature Gran % 0 Nucleated RBC % 0 Puncture Site Right Radial ABG pH 7.31 L ABG pCO2 40 ABG pO2 123 H D ABG HCO3 20 ABG O2 Saturation 99 H ABG Base Excess -6 L Oxygen Liter Flow 3 Sodium 144 145 Potassium 4.0 3.9 Chloride 110 H 111 H Carbon Dioxide 23.4 22.6 Anion Gap 11 11 BUN 26 H 24 H Creatinine 1.8 H D 1.6 H Estim Creat Clear Calc 33.6 L 37.7 L eGFR 30 L 34 L BUN/Creatinine Ratio 14 15 Glucose [address] Glu mg/dL 105 Hemoglobin A1c 5.3 Calculated Osmolality 291 292 Calcium 9.3 9.2 Corrected Calcium 9.2 Phosphorus 3.5 Magnesium 2.6 Total Bilirubin 0.3 Direct Bilirubin 0.1 AST 17 ALT 17 Alkaline Phosphatase 64 Total Creatine Kinase Total Protein 5.7 Albumin 4.1 D Globulin 1.6 L Albumin/Globulin Ratio 2.6 H Triglycerides 201 H Cholesterol 152 LDL Cholesterol, Calc 74 HDL Cholesterol 38 L Cholesterol/HDL Ratio 4.0 Vitamin B12 Ur Random Creatinine Ur Random Sodium Ur Random Potassium Ur Random Chloride Salicylates < 3.0 Acetaminophen 08/11/25 08/11/25 12:16 15:05 WBC RBC Hgb Hct MCV MCH MCHC RDW Std Deviation Plt Count Neut % (Auto) Lymph % (Auto) [place] % (Auto) Eos % (Auto) Baso % (Auto) Neut # (Auto) Lymph # (Auto) [place] # (Auto) Eos # (Auto) Baso # (Auto) Immature Gran # (Auto) Absolute Nucleated RBC Immature Gran % Nucleated RBC % Puncture Site ABG pH ABG pCO2 ABG pO2 ABG HCO3 ABG O2 Saturation ABG Base Excess Oxygen Liter Flow Sodium 141 Potassium 4.3 Chloride 112 H Carbon Dioxide 19.4 L Anion Gap 10 BUN 16 Creatinine 1.5 H Estim Creat Clear Calc 40.3 L eGFR 37 L BUN/Creatinine Ratio 11 L Glucose [address] Glu mg/dL Hemoglobin A1c Calculated Osmolality 282 Calcium 9.1 Corrected Calcium 9.1 Phosphorus 3.4 Magnesium Total Bilirubin Direct Bilirubin AST ALT Alkaline Phosphatase Total Creatine Kinase Total Protein Albumin 4.0 Globulin Albumin/Globulin Ratio Triglycerides Cholesterol LDL Cholesterol, Calc HDL Cholesterol Cholesterol/HDL Ratio Vitamin B12 Ur Random Creatinine Ur Random Sodium Ur Random Potassium Ur Random Chloride Salicylates < 3.0 < 3.0 Acetaminophen ABG Interpretation ABG results: 08/10/25 08/11/25 15:35 11:40 ABG pH 7.24 L 7.31 L ABG pCO2 40 40 ABG pO2 245 H 123 H D ABG HCO3 17 L 20 ABG O2 Saturation 100 H 99 H ABG Base Excess -10 L -6 L Quality Measures Quality Measures VTE prophylaxis Advance care planning discussed with:: child Assessment & Plan Assessment Current Active Medications: Generic Name Dose Route Start Last Admin Trade Name Freq PRN Reason Stop Dose Admin Acetaminophen 650 mg 08/10/25 14:52 Acetaminophen 325 Mg Tablet PO 09/09/25 14:51 Q6H PRN Fever >100.0 or pain mild 1-3 Albuterol/Ipratropium 3 ml 08/10/25 14:39 Albuterol/Ipratropium (Duoneb) Rt Meaghan 3 Ml Nebu INH 09/09/25 14:38 Q2HR PRN SHORTNESS OF BREATH OR WHEEZE Dextrose 50 ml 08/10/25 14:57 Dextrose 50%-Water Inj 50 Ml Syringe IV 09/09/25 14:56 Q15MIN PRN BG <50 OR BG <70 & pt unresponsive Glucagon 1 mg 08/10/25 14:57 Glucagon Inj 1 Mg Vial IM Q15MIN PRN BG <70, and no IV access Heparin Sodium (Porcine) 5,000 unit 08/10/25 15:00 08/11/25 14:59 Heparin Sod Inj 5000 Unit/Ml Vial SC 08/24/25 14:59 5,000 unit Q8HR MARGARETTE Administration Thiamine HCl 500 mg/ Sodium 105 mls @ 205 mls/hr 08/11/25 10:00 08/11/25 14:55 Chloride IV 08/13/25 09:59 205 mls/hr TID MARGARETTE Administration Acetylcysteine 14,250 mg/ 271.25 mls @ 271.25 mls/hr 08/11/25 10:37 08/11/25 12:25 Dextrose IV 09/10/25 10:36 271.25 mls/hr .BY DURATION MARGARETTE Administration Acetylcysteine 4,750 mg/ 523.75 mls @ 130.937 mls/hr 08/11/25 10:37 08/11/25 14:42 Dextrose IV 09/10/25 10:36 130.937 mls/hr .BY DURATION MARGARETTE Administration Acetylcysteine 9,500 mg/ 1,047.5 mls @ 65.469 mls/hr 08/11/25 10:37 Dextrose IV 09/10/25 10:36 .BY DURATION MARGARETTE Lactated Ringer's 1,000 mls @ 60 mls/hr 08/11/25 16:00 08/11/25 16:18 Lactated Ringers IV 09/10/25 15:56 60 mls/hr .[id number] MARGARETTE Administration Insulin Human Lispro 0 unit 08/10/25 15:15 08/11/25 12:30 Insulin Lispro (Admelog) 1 Unit/0.01 Ml Unit SC 09/09/25 15:14 Not Given Q6HR MARGARETTE Protocol Labetalol HCl 10 mg 08/11/25 15:57 Labetalol Inj 5 Mg/Ml Vial 20 Ml IVP 09/10/25 15:56 Q6HR PRN hypertension Ondansetron HCl 4 mg 08/10/25 14:52 Ondansetron Inj 2 Mg/Ml Inj 2 Ml IVP 09/09/25 14:51 Q6H PRN NAUSEA OR VOMITING Protocol Plan Patient is 70 yr female with PMH of neuropathy, chronic pain, hypertension, hyperlipidemia was admitted to ED due to altered mental status. Neurology consulted and patient admitted for further workup. #Acute encephalopathy Rule out structural causes, EEG for nonconvulsive status. Ammonia WNL, no uremia, other electrolytes normal. NIHSS score 10, CT head negative for acute hemorrhage, CTA negative for LVO or stenosis. A1c from November 2024 was 5.6, triglycerides 198, cholesterol 209, LDL 118 from May 2025. BUN 29, creatinine elevated 2.8 from baseline around 1.0, GFR 17. ABG showed metabolic acidosis pH 7.24, pCO2 40, bicarb 17. Lactic acid 1.9, magnesium 1.5, ammonia 10 troponins negative, BHB 0.4, TSH 1.33. UA negative for infection, U tox negative for illict substance. Renal ultrasound showed bilateral parenchymal scarring, no hydro nephrosis. B12 resulted normal limits at 532. Utox positive for elevated salicylate level of 64. Family was updated of this finding and stated that patient does not take any known aspirin. Nephrology was consulted. -allow for permissive HTN until stroke ruled out on MRI -trend salicylate levels q2hr (primary team contacted poison control) -Follow up with brain MRI -EEG pending -thiamine pending -seizure precaution - Neurochecks q4hr #Metabolic acidosis #HERO #Chronic pain #Hypertension #Obesity #RLS Primary care team to manage above conditions and ongoing care needs. The patient's management plan was discussed with my attending physician Dr. Leong. Malina Bauman, PGY-2 Attending Provider Attestation/Addendum I personally have seen and examined the patient at the bedside and agree with resident's findings, assessment and plan of care her mental status has somewhat improved but still not back to baseline. We still think nonconvulsive status epilepticus is in the differential diagnosis. Will add Depakote 1000 mg every 8, check the level to make sure that it is therapeutic after 48 hours of being on it. Follow-up with the MRI brain as it becomes available and then consider doing LP tomorrow
--- NOTE | 2025-08-11 16:57 | RESP.EEG ---
EEG COMPLETED AT THIS TIME AND WAITING TO BE READ
[2025-08-11] MEDS: ONDANSETRON INJ 2 MG/ML INJ 2 ML 4 MG IVP (22:23)
[2025-08-11] MEDS: LABETALOL INJ 5 MG/ML VIAL 20 ML 10 MG IVP (22:23)
[2025-08-12] VITALS (9 sets, daily range): BP systolic 143–171; BP diastolic 83–95; PULSE 81–103; RESP 12–19; TEMP 36.4–36.9; O2SAT 95–100; BMI 34.5; BMI 13.0
--- NOTE | 2025-08-12 | XR_ITS ---
Examinations: MRI Brain without intravenous contrast. MRA brain without intravenous contrast. MRA carotids without intravenous contrast 3-D vascular reconstructions Date and time of exam: August 12, 2025, 1407 hours INDICATIONS: Onset dizziness beginning several weeks ago with altered mental status Technique: Multiple axial and sagittal images of the brain have been obtained MRA brain carotid images without contrast obtained, including 3-D postprocessing, vascular maximum intensity projection images Findings: Sella turcica is not enlarged. The optic chiasm and infundibular stalk are not remarkable. Prepontine and interpeduncular cisterns are not enlarged. No localized enlargement of the medulla or [place]ico. Fourth ventricle and cerebellar tonsils normal in position. Subacute hemorrhage is not seen. Fourth ventricle is midline. Mass in the cerebellopontine angle region is not evident. 7th and 8th nerve complexes exhibits symmetry. Globes are symmetrical with no retro-orbital mass. Increased white matter signal moderate, including encephalomalacia right posterior parietal lobe Diffusion-weighted images demonstrate no focus of restricted diffusion Mass-effect upon the ventricular system is not identified. MRA carotid images severely degraded by patient motion. MRA brain images no definite large vessel occlusions Impression: Negative for acute hemorrhage mass effect or midline shift No acute infarct Moderate chronic microvascular white matter change No cerebral large vessel arterial occlusions
[2025-08-12] MEDS: VALPROATE SOD IV (01:10)
[2025-08-12] MEDS: SODIUM CHLORIDE 0.9% IV (01:10)
[2025-08-12] MEDS: HEPARIN SOD INJ 5000 UNIT/ML VIAL SC ×3 (05:24→21:55)
[2025-08-12] MEDS: THIAMINE INJ 500 MG in SODIUM CHLORIDE 0.9% 100 ML 205 MG IV ×3 (05:25→21:31)
[2025-08-12 05:56] LABS: Basophils # (Auto) 0.0 Thou/mm3 (0.0-0.2); Basophils % (Auto) 1 % (0-2.5); Eosinophils # (Auto) 0.1 Thou/mm3 (0.0-0.5); Eosinophils % (Auto) 1 % (0-10); Hematocrit 36.8 % (36.0-46.0); Hemoglobin 12.7 g/dL (12.0-16.0); Immature Granulocytes Auto 0.02 Thou/mm3 (0.00-0.00); Lymphocytes # (Auto) 1.1 Thou/mm3 (1.0-4.8); Lymphocytes % (Auto) 18 % (10-50); Mean Corpuscular HGB Conc 34.5 g/dl (31.0-37.0); Mean Corpuscular Hemoglobin 30.7 pg (25.0-35.0); Mean Corpuscular Volume 89 fL (80-100); Monocytes # (Auto) 0.6 Thou/mm3 (0.0-0.8); Monocytes % (Auto) 11 % (0-12); Neutrophils # (Auto) 4.2 Thou/mm3 (1.8-7.7); Neutrophils % (Auto) 70 % (37-80); Nucleated Red Blood Cell # 0.00 Thou/mm3 (0.00-0.00); Nucleated Red Blood Cell % 0 /100 WBC (0); Platelet Count 225 Thou/mm3 (140-440); RDW Standard Deviation 40.6 fL (36.4-46.3); Red Blood Count 4.14 Miln/mm3 (4.00-5.20); White Blood Count 6.0 Thou/mm3 (3.6-11.0)
[2025-08-12 06:24] LABS: Acetaminophen < 2.0 mcg/mL (10.0-20.0); Anion Gap 15 (7-16); BUN/Creatinine Ratio 17 Ratio (12-20); Blood Urea Nitrogen 20 mg/dL (9-23); Calcium 9.1 mg/dL (8.3-10.6); Carbon Dioxide 22.7 mMol/L (20.0-31.0); Chloride 105 mMol/L (98-107); Creatinine (Component) 1.2 mg/dL (0.6-1.3); Estimated Creatinine Clearance 50.3 mL/min (>60); Glucose 115 mg/dL (74-106); Magnesium 1.8 mg/dL (1.6-2.6); Osmolality,Calculated 288 (275-295); Phosphorous 2.9 mg/dL (2.4-5.1); Potassium 3.6 mMol/L (3.4-5.1); Sodium 143 mMol/L (136-145); eGFR 48 See Note
[2025-08-12] MEDS: [UNRECOGNIZED DRUG - OTHER] 1000 MG IV (09:55)
--- NOTE | 2025-08-12 13:42 | ESPR_ITS ---
<Statement entered by Maximo Perez MD - 08/15/25 12:15> I reviewed above note and agree with findings and plans. I have also personally examined the patient with medicine team and went over assessment and plan with medical team including internet sales director and resident physician. Documentation for date of: 08/12/25 No overnight events. Patient is alert and oriented x 3, daughter at bedside noted this is patient's normal baseline and has improved compared to initial admission. Acetaminophen and salicylate levels continue to downtrend. Patient counseled on polypharmacy. Acute metabolic encephalopathy likely secondary to polypharmacy and overdose of salicylates/acetaminophen. 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 Neurology started Depakote 1000 mg every 8 hours. MRI is still pending. Less likely to proceed with LP as patient has improved acute metabolic encephalopathy. Poison controlled updated, cleared from their standpoint. Acetylcysteine discontinued. Monitor blood pressure as patient experienced elevated blood pressure ranging systolics of 160. Likely secondary to acetylcysteine fluids. Amlodipine 5 mg daily added. Labetalol as needed - The patient's plan was discussed with attending Dr. Chris Gordillo MD PGY2 Internal Medicine Subjective Subjective Interval history: Overnight, patient's mentation improved dramatically, AOx3. According to patient says she does not takes medications. Patient interacting with family, recognizes faces and names. Patient is lucid and aware. Dr. Leong recommends MRI of head, recommends valproic acid, and possible LP if mentation does not improve. Exam Vital Signs Temp Pulse Resp BP Pulse Ox O2 Del Method O2 Flow Rate 98.0 F 102 H 18 165/95 H 96 Room Air 3 08/12/25 12:00 08/12/25 12:00 08/12/25 12:00 08/12/25 12:00 08/12/25 12:00 08/12/25 08:00 08/12/25 07:17 Narrative Exam General: No acute distress, well nourished Eye: PERRL, EOMI, normal conjunctiva, no scleral icterus HENT: Normocephalic, atraumatic, normal hearing, dry oral mucus membranes, lips and mouth dried and peeling Neck: Supple, non-tender, no JVD, no lymphadenopathy Lungs: Clear to auscultation bilaterally, non-labored respirations, symmetric chest rise, no use of accessory muscles, breaths through mouth, spO2 96% on RA Heart: Normal S1 and S2, no S3 or S4 appreciated. Normal rate and regular rhythm, no murmurs, rubs gallops, or edema. Peripheral pulses intact bilaterally, capillary refill brisk distally Abdomen: Soft, non-tender, non-distended, normal bowel sounds. No guarding or rebound tenderness. Musculoskeletal: Normal range of motion and strength. Skin: Skin is warm, dry, no rashes or lesions. Neurologic: Alert, awake and oriented x2. CN II-XII grossly intact. No focal neuro deficits. No signs of meningeal irritation noted. Psychiatric: Cooperative, appropriate mood and affect Objective Labs 08/12/25 05:35 08/12/25 05:35 Labs: Laboratory Results - last 24 hr 08/11/25 08/12/25 15:05 05:35 WBC 6.0 RBC 4.14 Hgb 12.7 Hct 36.8 MCV 89 MCH 30.7 MCHC 34.5 RDW Std Deviation 40.6 Plt Count 225 Neut % (Auto) 70 Lymph % (Auto) 18 [place] % (Auto) 11 Eos % (Auto) 1 Baso % (Auto) 1 Neut # (Auto) 4.2 Lymph # (Auto) 1.1 [place] # (Auto) 0.6 Eos # (Auto) 0.1 Baso # (Auto) 0.0 Immature Gran # (Auto) 0.02 H Absolute Nucleated RBC 0.00 Immature Gran % 0 Nucleated RBC % 0 Sodium 143 Potassium 3.6 D Chloride 105 Carbon Dioxide 22.7 Anion Gap 15 BUN 20 Creatinine 1.2 Estim Creat Clear Calc 50.3 L eGFR 48 L BUN/Creatinine Ratio 17 Glucose 115 H Calculated Osmolality 288 Calcium 9.1 Phosphorus 2.9 Magnesium 1.8 Salicylates < 3.0 Acetaminophen < 2.0 L ABG Interpretation ABG results: 08/10/25 08/11/25 15:35 11:40 ABG pH 7.24 L 7.31 L ABG pCO2 40 40 ABG pO2 245 H 123 H D ABG HCO3 17 L 20 ABG O2 Saturation 100 H 99 H ABG Base Excess -10 L -6 L Quality Measures Quality Measures VTE prophylaxis Advance care planning discussed with:: patient Assessment & Plan Assessment Current Active Medications: Generic Name Dose Route Start Last Admin Trade Name Zeyadq PRN Reason Stop Dose Admin Acetaminophen 650 mg 08/10/25 14:52 Acetaminophen 325 Mg Tablet PO 09/09/25 14:51 Q6H PRN Fever >100.0 or pain mild 1-3 Albuterol/Ipratropium 3 ml 08/10/25 14:39 Albuterol/Ipratropium (Duoneb) Rt Meaghan 3 Ml Nebu INH 09/09/25 14:38 Q2HR PRN SHORTNESS OF BREATH OR WHEEZE Dextrose 50 ml 08/10/25 14:57 Dextrose 50%-Water Inj 50 Ml Syringe IV 09/09/25 14:56 Q15MIN PRN BG <50 OR BG <70 & pt unresponsive Glucagon 1 mg 08/10/25 14:57 Glucagon Inj 1 Mg Vial IM Q15MIN PRN BG <70, and no IV access Heparin Sodium (Porcine) 5,000 unit 08/10/25 15:00 08/12/25 13:12 Heparin Sod Inj 5000 Unit/Ml Vial SC 08/24/25 14:59 5,000 unit Q8HR MARGARETTE Administration Thiamine HCl 500 mg/ Sodium 105 mls @ 205 mls/hr 08/11/25 10:00 08/12/25 13:12 Chloride IV 08/13/25 09:59 205 mls/hr TID MARGARETTE Administration Valproic Acid 1,000 mg/ Sodium 60 mls @ 60 mls/hr 08/12/25 14:00 Chloride IV 09/11/25 13:59 Q8HR MARGARETTE Insulin Human Lispro 0 unit 08/10/25 15:15 08/12/25 11:49 Insulin Lispro (Admelog) 1 Unit/0.01 Ml Unit SC 09/09/25 15:14 Not Given Q6HR [facility] Protocol Labetalol HCl 10 mg 08/11/25 15:57 08/11/25 22:23 Labetalol Inj 5 Mg/Ml Vial 20 Ml IVP 09/10/25 15:56 10 mg Q6HR PRN Administration hypertension Ondansetron HCl 4 mg 08/10/25 14:52 08/11/25 22:23 Ondansetron Inj 2 Mg/Ml Inj 2 Ml IVP 09/09/25 14:51 4 mg Q6H PRN Administration NAUSEA OR VOMITING Protocol Plan This a 70 yo F presenting for altered mental status and dizziness. During the ED course, patient workup yielded negative results on CT non-con head/brain, WBC within normal normals, and renal panel showed a prerenal azotemia most likely due to medication side effect. Admitted for HERO and Acute Metabolic Encephalopathy. #Acute metabolic encephalopathy, like salicylate toxicity and acetaminophen, improved #Polypharmacy #concern for Nonepileptic seizure Ddx: salicylae toxicity/acetaminophen toxicity vs thiamine deficiency vs Nonepileptic seizures Patient presented with altered mental status concerning for metabolic cause as patient has extensive medication list including weight loss medication of Zepbound, Phentermine, and other sedating medication such as [place] and Gabapentin vs UTOX given positive for opioids vs stroke versus infectious cause less likely. Teleneuro consulted. CT head negative UA negative Plan - MRI placed by neuro team, pending read - Echo ordered - Salicylate levels and acetaminophen levels below detection - Poison control clearing patient 10:29AM, cleared paitnet - EEG shows low amplitude electrical activity possibly nonepileptic seizure according to Dr. Leong - B12 normal, thiamine IM 500 TID given 08/11 - Valproate 1g IV q8hr; ordered valproate lvl #Acute Kidney Injury, improving #Metabolic acidosis, non-anion ion gap, resolved. Patient presented with acute kidney injury on 08/10/2025 which is a rise greater than 3 and creatinine over the past month. Given drastic change concerning for intrinsic kidney injury as BUN and creatinine levels less than 20. Concerning for polypharmacy and toxicity. Based on results patient showed eGFR 54 05/2024 Cr 1.2; BUN 20 - Monitor AM BMP - Renal function returned to baseline #Hypertension #Hyperlipidemia Currently holding all hypertensive medication as patient appears normotensive. PRN Labetolol 10mg q6hr. - Gave a spot dose of IV labetolol for HTN with tachycardia. - Started norvasc 5mg daily - consider resuming Ezetimibe as patient improves - resume home meds #Chronic Pain - Hold sedative medications or meds that effect cognition - [place], gabapentin, amytriptiline, baclofen, tizanidine and cyclobenzaprine #Obesity Tirzepatide, Zepbound-discontinued on discharge - Monitor BG - daily AM labs #Restless leg syndrome HOLD gabapentin give altered mental status and Ropinirole given altered mental status. Dispo: in-patient med floor Code: Full Code VTE PPx: heparin gtts GI PPx: none Bowel Reg: regular diet Liu: catheter Lines: PIV Discussed case with senior Dr. Gordillo and attending Dr. Chris Foy, DO PGY-1
[2025-08-12] MEDS: VALPROATE SOD INJ 1,000 MG in SODIUM CHLORIDE 0.9% 50 ML 60 MG IV ×2 (14:53→21:54)
--- NOTE | 2025-08-12 15:04 | PD.RESPRO ---
Documentation for date of: 08/12/25 Subjective Subjective Interval history: Patient examined at bedside. BP 165/95. Labs reflect improving kidney function with Cr downtrended to 1.2, BUN 20, GFR 48. Glucose this morning 115. There is marked improvement in mentation today. Patient is able to recognize family members and conversate. EEG was abnormal suggesting encephalopathic changes and nonconvulsive status epilepticus, therefore started on depakote 1000mg TID. Plan to repeat EEG tomorrow and check valproic acide levels to ensure therapeutic range acheived. MRI was negative for ischemic or hemorrhagic changes. Patient has agreed to undergo LP to rule out meningitis. Exam Vital Signs Temp Pulse Resp BP Pulse Ox O2 Del Method O2 Flow Rate 98.0 F 102 H 18 165/95 H 96 Room Air 3 08/12/25 12:00 08/12/25 12:00 08/12/25 12:00 08/12/25 12:00 08/12/25 12:00 08/12/25 08:00 08/12/25 07:17 Narrative Exam General: Elderly female, somnolent, arouses to sternal, confused on arousal., not following commands HEENT: NCAT, No JVD noted. Mucosa dry. Pupils are equal and reactive to light bilaterally Cardiovascular: Normal S1 and S2. Regular rate and rhythm. Respiratory: Lungs are clear to auscultation bilaterally. No wheezing or crackles heard. Abdomen: Soft, nontender, not distended, normal bowel sounds. Skin: Warm to touch, dry, no rashes noted Musculoskeletal: No gross injuries. Able to move all 4 extremities. Neuro: Alert and oriented x3. Follows commands, CN grossly intact. Strength 5/5 in extremities Psych: normal affect and mood Objective Labs 08/13/25 05:12 08/14/25 05:48 Labs: Laboratory Results - last 24 hr 08/11/25 08/12/25 15:05 05:35 WBC 6.0 RBC 4.14 Hgb 12.7 Hct 36.8 MCV 89 MCH 30.7 MCHC 34.5 RDW Std Deviation 40.6 Plt Count 225 Neut % (Auto) 70 Lymph % (Auto) 18 [place] % (Auto) 11 Eos % (Auto) 1 Baso % (Auto) 1 Neut # (Auto) 4.2 Lymph # (Auto) 1.1 [place] # (Auto) 0.6 Eos # (Auto) 0.1 Baso # (Auto) 0.0 Immature Gran # (Auto) 0.02 H Absolute Nucleated RBC 0.00 Immature Gran % 0 Nucleated RBC % 0 Sodium 143 Potassium 3.6 D Chloride 105 Carbon Dioxide 22.7 Anion Gap 15 BUN 20 Creatinine 1.2 Estim Creat Clear Calc 50.3 L eGFR 48 L BUN/Creatinine Ratio 17 Glucose 115 H Calculated Osmolality 288 Calcium 9.1 Phosphorus 2.9 Magnesium 1.8 Salicylates < 3.0 Acetaminophen < 2.0 L ABG Interpretation ABG results: 08/10/25 08/11/25 15:35 11:40 ABG pH 7.24 L 7.31 L ABG pCO2 40 40 ABG pO2 245 H 123 H D ABG HCO3 17 L 20 ABG O2 Saturation 100 H 99 H ABG Base Excess -10 L -6 L Quality Measures Quality Measures VTE prophylaxis Advance care planning discussed with:: spouse Assessment & Plan Assessment Current Active Medications: Generic Name Dose Route Start Last Admin Trade Name Freq PRN Reason Stop Dose Admin Acetaminophen 650 mg 08/10/25 14:52 Acetaminophen 325 Mg Tablet PO 09/09/25 14:51 Q6H PRN Fever >100.0 or pain mild 1-3 Albuterol/Ipratropium 3 ml 08/10/25 14:39 Albuterol/Ipratropium (Duoneb) Rt Meaghan 3 Ml Nebu INH 09/09/25 14:38 Q2HR PRN SHORTNESS OF BREATH OR WHEEZE Amlodipine Besylate 5 mg 08/12/25 14:00 Amlodipine Besylate 5 Mg Tablet PO 09/11/25 13:59 QDAY MARGARETTE Dextrose 50 ml 08/10/25 14:57 Dextrose 50%-Water Inj 50 Ml Syringe IV 09/09/25 14:56 Q15MIN PRN BG <50 OR BG <70 & pt unresponsive Glucagon 1 mg 08/10/25 14:57 Glucagon Inj 1 Mg Vial IM Q15MIN PRN BG <70, and no IV access Heparin Sodium (Porcine) 5,000 unit 08/10/25 15:00 08/12/25 13:12 Heparin Sod Inj 5000 Unit/Ml Vial SC 08/24/25 14:59 5,000 unit Q8HR MARGARETTE Administration Thiamine HCl 500 mg/ Sodium 105 mls @ 205 mls/hr 08/11/25 10:00 08/12/25 13:12 Chloride IV 08/13/25 09:59 205 mls/hr TID MARGARETTE Administration Valproic Acid 1,000 mg/ Sodium 60 mls @ 60 mls/hr 08/12/25 14:00 08/12/25 14:53 Chloride IV 09/11/25 13:59 60 mls/hr Q8HR MARGARETTE Administration Insulin Human Lispro 0 unit 08/10/25 15:15 08/12/25 11:49 Insulin Lispro (Admelog) 1 Unit/0.01 Ml Unit SC 09/09/25 15:14 Not Given Q6HR MARGARETTE Protocol Labetalol HCl 10 mg 08/11/25 15:57 08/11/25 22:23 Labetalol Inj 5 Mg/Ml Vial 20 Ml IVP 09/10/25 15:56 10 mg Q6HR PRN Administration hypertension Ondansetron HCl 4 mg 08/10/25 14:52 08/11/25 22:23 Ondansetron Inj 2 Mg/Ml Inj 2 Ml IVP 09/09/25 14:51 4 mg Q6H PRN Administration NAUSEA OR VOMITING Protocol Plan Patient is 70 yr female with PMH of neuropathy, chronic pain, hypertension, hyperlipidemia was admitted to ED due to altered mental status. Neurology consulted and patient admitted for further workup. #Acute encephalopathy-improving Rule out structural causes, EEG for nonconvulsive status. Ammonia WNL, no uremia, other electrolytes normal. NIHSS score 10, CT head negative for acute hemorrhage, CTA negative for LVO or stenosis. A1c from November 2024 was 5.6, triglycerides 198, cholesterol 209, LDL 118 from May 2025. BUN 29, creatinine elevated 2.8 from baseline around 1.0, GFR 17. ABG showed metabolic acidosis pH 7.24, pCO2 40, bicarb 17. Lactic acid 1.9, magnesium 1.5, ammonia 10 troponins negative, BHB 0.4, TSH 1.33. UA negative for infection, U tox negative for illict substance. Renal ultrasound showed bilateral parenchymal scarring, no hydro nephrosis. B12 resulted normal limits at 532. Utox positive for elevated salicylate level of 64. Family was updated of this finding and stated that patient does not take any known aspirin. Nephrology was consulted. EEG was abnormal suggesting encephalopathic changes. 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 MRI negative for ischemic or hemorrhagic changes. -started on depakote 1000mg TID. -check valproic acid levels in 48 hrs to ensure therapeutic range achieved -repeat EEG tomorrow -lumbar puncture pending -thiamine pending -seizure precaution - Neurochecks q4hr #Metabolic acidosis #HERO #Chronic pain #Hypertension #Obesity #RLS Primary care team to manage above conditions and ongoing care needs. The patient's management plan was discussed with my attending physician Dr. Leong. Malina Bauman, PGY-2 Attending Provider Attestation/Addendum I have seen and examined the patient at the bedside and I agreed with resident's findings, assessment and plan of care. Did LP today to evaluate for the abnormal EEG and continue with Depakote.
--- NOTE | 2025-08-12 15:07 | PC.PT ---
Patient is safe to ambulate to the bathroom and in the halls with a FWW and 1 staff assist. RN made aware.
--- NOTE | 2025-08-12 16:58 | PC.LAC ---
pt blood glucose was 61 gave pt 2 juices recheck now 80
[2025-08-12 20:01] LABS: Coccid Serology, CF CSF (UCD)* See Sep Rpt
[2025-08-12 20:07] LABS: CSF Mononuclear 0 %; CSF White Blood Cell 1 /cmm
[2025-08-12 20:12] LABS: CSF Cell Count Tube # Tube # 4; CSF Color Colorless (Colorless)
[2025-08-12 20:14] LABS: CSF Polynuclear WBC 100 %; CSF, Appearance Clear (Clear)
[2025-08-12 20:20] LABS: Glucose,CSF 70 mg/dL (40-70); Protein Total,CSF 92 mg/dL (8-32)
[2025-08-12 20:22] LABS: CSF Red Blood Cell 1 /cmm
[2025-08-13] VITALS (9 sets, daily range): BP systolic 145–173; BP diastolic 75–97; PULSE 88–408; RESP 16–97; TEMP 36.2–36.7; O2SAT 95–99; BMI 34.2
--- NOTE | 2025-08-13 00:18 | PC.NURSE ---
notified Dr. Ballard that patients bs was 59, i gave 2 orange juices and it was 68. she will review chart and call back or order something
[2025-08-13] MEDS: DEXTROSE 50%-WATER INJ 50 ML SYRINGE 25 ML IVP (01:01)
--- NOTE | 2025-08-13 01:05 | PD.EVENT ---
Documentation for date of: 08/12/25 Date of procedure: 08/12/25 Pre-op diagnosis: AMS Post-op diagnosis: Same Consent signed by: Patient Position: lateral decubitus and sitting Prep: betadine Anesthesia: 1 % Lidocaine Sedation: none Needle size: 22ga Needle length: other (5) Interspace: L3-4 Number of attempts: 2 Opening pressure: not done Fluids mLs collected: 12 Fluid description: clear Complications: No Patient tolerance: good Procedure performed by: Robin Leong Condition: Stable Disposition: no change
[2025-08-13] MEDS: THIAMINE INJ 500 MG in SODIUM CHLORIDE 0.9% 100 ML 205 MG IV (05:41)
[2025-08-13] MEDS: HEPARIN SOD INJ 5000 UNIT/ML VIAL SC ×3 (05:41→21:18)
[2025-08-13 06:20] LABS: Basophils # (Auto) 0.0 Thou/mm3 (0.0-0.2); Basophils % (Auto) 1 % (0-2.5); Eosinophils # (Auto) 0.1 Thou/mm3 (0.0-0.5); Eosinophils % (Auto) 2 % (0-10); Hematocrit 32.9 % (36.0-46.0); Hemoglobin 11.7 g/dL (12.0-16.0); Immature Granulocytes Auto 0.01 Thou/mm3 (0.00-0.00); Lymphocytes # (Auto) 0.9 Thou/mm3 (1.0-4.8); Lymphocytes % (Auto) 16 % (10-50); Mean Corpuscular HGB Conc 35.6 g/dl (31.0-37.0); Mean Corpuscular Hemoglobin 30.5 pg (25.0-35.0); Mean Corpuscular Volume 86 fL (80-100); Monocytes # (Auto) 0.5 Thou/mm3 (0.0-0.8); Monocytes % (Auto) 9 % (0-12); Neutrophils # (Auto) 3.9 Thou/mm3 (1.8-7.7); Neutrophils % (Auto) 72 % (37-80); Nucleated Red Blood Cell # 0.00 Thou/mm3 (0.00-0.00); Nucleated Red Blood Cell % 0 /100 WBC (0); Platelet Count 211 Thou/mm3 (140-440); RDW Standard Deviation 38.1 fL (36.4-46.3); Red Blood Count 3.83 Miln/mm3 (4.00-5.20); White Blood Count 5.4 Thou/mm3 (3.6-11.0)
[2025-08-13] MEDS: VALPROATE SOD INJ 1,000 MG in SODIUM CHLORIDE 0.9% 50 ML 60 MG IV (06:42)
[2025-08-13 06:44] LABS: Alanine Aminotransferase 13 U/L (10-49); Albumin, Serum 3.6 gm/dL (3.4-4.8); Albumin/Globulin Ratio 2.3 (1.2-2.2); Alkaline Phosphatase 57 U/L (46-116); Anion Gap 11 (7-16); Aspartate Amino Transferase 22 U/L (0-34); BUN/Creatinine Ratio 10 Ratio (12-20); Bilirubin,Total 0.6 mg/dL (0.3-1.2); Blood Urea Nitrogen 11 mg/dL (9-23); Calcium 9.0 mg/dL (8.3-10.6); Calcium (Corrected) 9.3 mg/dL (8.5-10.1); Carbon Dioxide 23.9 mMol/L (20.0-31.0); Chloride 99 mMol/L (98-107); Creatinine (Component) 1.1 mg/dL (0.6-1.3); Estimated Creatinine Clearance 54.2 mL/min (>60); Globulin 1.6 gm/dL (2.3-3.5); Glucose 102 mg/dL (74-106); Magnesium 1.4 mg/dL (1.6-2.6); Osmolality,Calculated 267 (275-295); Phosphorous 2.3 mg/dL (2.4-5.1); Potassium 3.6 mMol/L (3.4-5.1); Sodium 134 mMol/L (136-145); Total Protein 5.2 gm/dL (5.7-8.2); eGFR 53 See Note
--- NOTE | 2025-08-13 08:40 | ESPR_ITS ---
<Statement entered by Maximo Perez MD - 08/27/25 17:15> I reviewed above note and agree with findings and plans. I have also personally examined the patient with medicine team and went over assessment and plan with medical team including web design intern and resident physician. <Statement entered by Yasmany Mcadams MD - 08/14/25 07:12> I saw and examined patient personally and supervised PGY 1 resident, Dr. Foy with formulating a management plan. I agree with the documentation with the exceptions as listed below. This a 70 yo F presenting for altered mental status and dizziness. During the ED course, patient workup yielded negative results on CT non-con head/brain, WBC within normal normals, and renal panel showed a prerenal azotemia most likely due to medication side effect. Admitted for HERO and Acute Metabolic Encephalopathy. Problem list: 1. Acute metabolic encephalopathy etiology multifactorial, likely secondary to polypharmacy, thiamine deficiency. Less likely due to known convulsive status epilepticus.?Resolved 2. Acute kidney injury, prerenal?resolving 3. Non-anion gap metabolic acidosis?resolved 4. Primary hypertension 5. Hyperlipidemia 6. History of chronic pain 7. Obesity class II previously on Zepbound 8. Restless leg syndrome Patient initially presented with altered mental status only being oriented to self and extremely somnolent. Poison control was contacted and the case discussed including findings of elevated salicylate level and acetaminophen levels. Patient was started on N-acetylcysteine infusion after which her mentation improved after 24 hours. N-acetylcysteine infusion was subsequently discontinued. Neurology was also consulted who recommended EEG and MRI brain without contrast. EEG showed foci of epileptiform activity and MRI brain showed right posterior parietal lobe encephalomalacia. LP was also performed and CSF studies were unremarkable. Patient was started on sodium valproate 1000 mg IV Q8 hourly by neurology and transition to valproic acid 500 mg p.o. twice daily today. Repeat EEG was performed and no abnormal foci of epileptiform activity were noted. Upon discharge medication reconciliation will be done to avoid further episodes since of polypharmacy. Anticipate discharge within next 24 hours Plan of care discussed with Attending Dr. Chris Mcadams MD PGY 2 Disclaimer: This note was dictated by speech recognition. Minor errors in district medical examiner may be present due to voice recognition software. Documentation for date of: 08/13/25 Subjective Subjective Interval history: NAEON, labs reviewed were unremarkable. MRI showed no acute ischemia or hemorrhage, notable for encephalomalacia right posterior parietal lobe. I was not able to assess patient this morning due to EEG being performed at bedside. Later, visited Mrs. Arredondo with IM Team and she says she feels better, AOx4, no cognitive deficits, lucid, awake and recognizes family in room. Exam Vital Signs Temp Pulse Resp BP Pulse Ox O2 Del Method O2 Flow Rate 98.0 F 94 25 H 160/80 H 99 Nasal Cannula 3 08/13/25 04:00 08/13/25 04:00 08/13/25 04:00 08/13/25 04:00 08/13/25 04:00 08/13/25 04:00 08/13/25 04:00 Narrative Exam General: No acute distress, well nourished Eye: PERRL, EOMI, normal conjunctiva, no scleral icterus HENT: Normocephalic, atraumatic, normal hearing, mucous membranes pink and moist, no oral erythema or lesions Neck: Supple, non-tender, no JVD, no lymphadenopathy Lungs: Clear to auscultation bilaterally, non-labored respirations, symmetric chest rise, no use of accessory muscles, breaths through mouth, spO2 99% on 2L Heart: Normal S1 and S2, no S3 or S4 appreciated. Normal rate and regular rhythm, no murmurs, rubs gallops, or edema. Peripheral pulses intact bilaterally, capillary refill brisk distally Abdomen: Soft, non-tender, non-distended, normal bowel sounds. No guarding or rebound tenderness. Musculoskeletal: Normal range of motion and strength. Skin: Skin is warm, dry, no rashes or lesions. Neurologic: Alert, awake and oriented x2. CN II-XII grossly intact. No focal neuro deficits. No signs of meningeal irritation noted. Psychiatric: Cooperative, appropriate mood and affect Objective Labs 08/13/25 05:12 08/13/25 05:12 Labs: Laboratory Results - last 24 hr 08/12/25 08/13/25 19:34 05:12 WBC 5.4 RBC 3.83 L Hgb 11.7 L Hct 32.9 L MCV 86 MCH 30.5 MCHC 35.6 RDW Std Deviation 38.1 Plt Count 211 Neut % (Auto) 72 Lymph % (Auto) 16 [place] % (Auto) 9 Eos % (Auto) 2 Baso % (Auto) 1 Neut # (Auto) 3.9 Lymph # (Auto) 0.9 L [place] # (Auto) 0.5 Eos # (Auto) 0.1 Baso # (Auto) 0.0 Immature Gran # (Auto) 0.01 H Absolute Nucleated RBC 0.00 Immature Gran % 0 Nucleated RBC % 0 Sodium 134 L Potassium 3.6 Chloride 99 Carbon Dioxide 23.9 Anion Gap 11 BUN 11 Creatinine 1.1 Estim Creat Clear Calc 54.2 L eGFR 53 L BUN/Creatinine Ratio 10 L Glucose 102 Calculated Osmolality 267 L Calcium 9.0 Corrected Calcium 9.3 Phosphorus 2.3 L Magnesium 1.4 L Total Bilirubin 0.6 AST 22 ALT 13 Alkaline Phosphatase 57 Total Protein 5.2 L Albumin 3.6 Globulin 1.6 L Albumin/Globulin Ratio 2.3 H CSF Appearance Clear CSF Color Colorless CSF WBC 1 CSF RBC 1 CSF Cell Count Tube # Tube # 4 CSF Mononuclear WBCs 0 CSF Polynuclear WBCs 100 CSF Glucose 70 CSF Total Protein 92 H Misc Test Result Cancelled ABG Interpretation ABG results: 08/10/25 08/11/25 15:35 11:40 ABG pH 7.24 L 7.31 L ABG pCO2 40 40 ABG pO2 245 H 123 H D ABG HCO3 17 L 20 ABG O2 Saturation 100 H 99 H ABG Base Excess -10 L -6 L Quality Measures Quality Measures VTE prophylaxis Advance care planning discussed with:: spouse Assessment & Plan Assessment Current Active Medications: Generic Name Dose Route Start Last Admin Trade Name Freq PRN Reason Stop Dose Admin Acetaminophen 650 mg 08/10/25 14:52 Acetaminophen 325 Mg Tablet PO 09/09/25 14:51 Q6H PRN Fever >100.0 or pain mild 1-3 Albuterol/Ipratropium 3 ml 08/10/25 14:39 Albuterol/Ipratropium (Duoneb) Rt Meaghan 3 Ml Nebu INH 09/09/25 14:38 Q2HR PRN SHORTNESS OF BREATH OR WHEEZE Amlodipine Besylate 5 mg 08/12/25 14:00 08/12/25 15:06 Amlodipine Besylate 5 Mg Tablet PO 09/11/25 13:59 5 mg QDAY MARGARETTE Administration Dextrose 50 ml 08/10/25 14:57 Dextrose 50%-Water Inj 50 Ml Syringe IV 09/09/25 14:56 Q15MIN PRN BG <50 OR BG <70 & pt unresponsive Glucagon 1 mg 08/10/25 14:57 Glucagon Inj 1 Mg Vial IM Q15MIN PRN BG <70, and no IV access Heparin Sodium (Porcine) 5,000 unit 08/10/25 15:00 08/13/25 05:41 Heparin Sod Inj 5000 Unit/Ml Vial SC 08/24/25 14:59 5,000 unit Q8HR MARGARETTE Administration Thiamine HCl 500 mg/ Sodium 105 mls @ 205 mls/hr 08/11/25 10:00 08/13/25 06:35 Chloride IV 08/13/25 09:59 Infused TID MARGARETTE Infusion Valproic Acid 1,000 mg/ Sodium 60 mls @ 60 mls/hr 08/12/25 14:00 08/13/25 07:42 Chloride IV 09/11/25 13:59 Infused Q8HR MARGARETTE Infusion Magnesium Sulfate 4 gm in 50 mls @ 12.5 mls/hr 08/13/25 08:13 Magnesium Sulfate Ivpb IV 08/13/25 12:12 X1 ONE Insulin Human Lispro 0 unit 08/10/25 15:15 08/13/25 06:34 Insulin Lispro (Admelog) 1 Unit/0.01 Ml Unit SC 09/09/25 15:14 Not Given Q6HR MARGARETTE Protocol Labetalol HCl 10 mg 08/11/25 15:57 08/11/25 22:23 Labetalol Inj 5 Mg/Ml Vial 20 Ml IVP 09/10/25 15:56 10 mg Q6HR PRN Administration hypertension Ondansetron HCl 4 mg 08/10/25 14:52 08/11/25 22:23 Ondansetron Inj 2 Mg/Ml Inj 2 Ml IVP 09/09/25 14:51 4 mg Q6H PRN Administration NAUSEA OR VOMITING Protocol Thiamine HCl 200 mg 08/14/25 09:00 Thiamine Inj 100 Mg/Ml Vial 2 Ml IVP 08/16/25 08:59 QDAY MARGARETTE Plan This a 70 yo F presenting for altered mental status and dizziness. During the ED course, patient workup yielded negative results on CT non-con head/brain, WBC within normal normals, and renal panel showed a prerenal azotemia most likely due to medication side effect. Admitted for HERO and Acute Metabolic Encephalopathy. #Acute metabolic encephalopathy, improved #Polypharmacy #thiamine deficiency vs concern for nonepileptic seizure Patient presented with altered mental status concerning for metabolic cause as patient has extensive medication list including weight loss medication of Zepbound, Phentermine, and other sedating medication such as Warren and Gabapentin vs UTOX given positive for opioids vs stroke versus infectious cause less likely. Teleneuro consulted. CT head negative UA negative Plan - MRI read shows no acute concerns for infarct, ischemia or bleed - Echo ordered - Salicylate levels and acetaminophen levels below detection - Poison control clearing patient 10:29AM, cleared patient - EEG shows low amplitude electrical activity possibly nonepileptic seizure according to Dr. Leong - B12 normal, thiamine IM 500 TID given 08/11 - Valproate 1g IV q8hr; ordered valproate lvl - Dr. Leong recommends patient stays for another day for valproic acid IV 08/13, discharge on valproic acid PO 08/14 #Acute Kidney Injury, resolved #Metabolic acidosis, non-anion ion gap, resolved. Patient presented with acute kidney injury on 08/10/2025 which is a rise greater than 3 and creatinine over the past month. Given drastic change concerning for intrinsic kidney injury as BUN and creatinine levels less than 20. Concerning for polypharmacy and toxicity. Based on results patient showed eGFR 54 05/2024 Cr 1.2 --> 1.1; BUN 20 --> 11 - Monitor AM BMP - Renal function returned to baseline #Hypertension #Hyperlipidemia Currently holding all hypertensive medication as patient appears normotensive. PRN Labetolol 10mg q6hr. - Gave a spot dose of IV labetolol for HTN with tachycardia. - Started norvasc 5mg daily - consider resuming Ezetimibe as patient improves - resume home meds #Chronic Pain - Hold sedative medications or meds that effect cognition - Warren, gabapentin, amytriptiline, baclofen, tizanidine and cyclobenzaprine - Completed med reconciliation and discussed changes with patient #Obesity Tirzepatide, Zepbound-discontinued on discharge - Monitor BG - daily AM labs #Restless leg syndrome HOLD gabapentin give altered mental status and Ropinirole given altered mental status. - Med recon: gabapentin and ropinirole to be restarted for discharge meds Dispo: in-patient med floor Code: Full Code VTE PPx: heparin gtts GI PPx: none Bowel Reg: regular diet Liu: catheter Lines: PIV Discussed case with senior Dr. Mcadams and attending Dr. Chris Foy, DO PGY-1
[2025-08-13] MEDS: Magnesium Sulfate 4 GM Ivpb 4 GM/50 ML BAG IV (08:41)
[2025-08-13] MEDS: NAPH,KPH MBDB 1 PACKET (1.5 GM) PO (08:42)
--- NOTE | 2025-08-13 10:16 | PC.SS ---
Update: Plan is repeat EEG.
--- NOTE | 2025-08-13 15:46 | PC.SS ---
Rounding Note: Patient to be transitioned from IV medication to P.O. form. Plan to d/c home tomorrow.
--- NOTE | 2025-08-13 18:15 | PD.VPROG1 ---
Telemedicine visit statement This visit was conducted with the use of phone was obtained on 08/13/25. Documentation for date of: 08/13/25 Subjective Subjective Interval history: Patient is in telemetry, no complaints reported. Walked in the hallway without any support. Virtual exam Vital Signs Temp Pulse Resp BP Pulse Ox O2 Del Method O2 Flow Rate 97.2 F 104 H 16 168/97 H 98 Room Air 3 08/13/25 12:00 08/13/25 16:00 08/13/25 12:45 08/13/25 12:00 08/13/25 12:00 08/13/25 12:00 08/13/25 04:00 Objective Labs 08/13/25 05:12 08/14/25 05:48 Labs: Laboratory Results - last 24 hr 08/12/25 08/13/25 19:34 05:12 WBC 5.4 RBC 3.83 L Hgb 11.7 L Hct 32.9 L MCV 86 MCH 30.5 MCHC 35.6 RDW Std Deviation 38.1 Plt Count 211 Neut % (Auto) 72 Lymph % (Auto) 16 [place] % (Auto) 9 Eos % (Auto) 2 Baso % (Auto) 1 Neut # (Auto) 3.9 Lymph # (Auto) 0.9 L [place] # (Auto) 0.5 Eos # (Auto) 0.1 Baso # (Auto) 0.0 Immature Gran # (Auto) 0.01 H Absolute Nucleated RBC 0.00 Immature Gran % 0 Nucleated RBC % 0 Sodium 134 L Potassium 3.6 Chloride 99 Carbon Dioxide 23.9 Anion Gap 11 BUN 11 Creatinine 1.1 Estim Creat Clear Calc 54.2 L eGFR 53 L BUN/Creatinine Ratio 10 L Glucose 102 Calculated Osmolality 267 L Calcium 9.0 Corrected Calcium 9.3 Phosphorus 2.3 L Magnesium 1.4 L Total Bilirubin 0.6 AST 22 ALT 13 Alkaline Phosphatase 57 Total Protein 5.2 L Albumin 3.6 Globulin 1.6 L Albumin/Globulin Ratio 2.3 H CSF Appearance Clear CSF Color Colorless CSF WBC 1 CSF RBC 1 CSF Cell Count Tube # Tube # 4 CSF Mononuclear WBCs 0 CSF Polynuclear WBCs 100 CSF Glucose 70 CSF Total Protein 92 H Misc Test Result Cancelled ABG Interpretation ABG results: 08/10/25 08/11/25 15:35 11:40 ABG pH 7.24 L 7.31 L ABG pCO2 40 40 ABG pO2 245 H 123 H D ABG HCO3 17 L 20 ABG O2 Saturation 100 H 99 H ABG Base Excess -10 L -6 L Assessment & Plan Problem List (1) Altered mental status: Status: Acute Assessment and plan: with EEG showing nonconvulsive status, started on Depakote. Improved back to baseline. Will continue with Depakote 750 mg bid MRI brain: normal. CSF analysis is unremarkable. Neurologically stable. (2) Acute kidney injury: Status: Acute Assessment and plan: improving with IVF
[2025-08-13] MEDS: DIVALPROEX SOD EC 125 MG TABEC 750 MG PO (21:18)
[2025-08-14] VITALS (8 sets, daily range): BP systolic 154–178; BP diastolic 80–104; PULSE 81–111; RESP 17–19; TEMP 36.1–36.3; O2SAT 94–97; BMI 34.7
--- NOTE | 2025-08-14 03:56 | PC.NURSE ---
Made MD aware of patients blood pressure elevated. first read 176/109 recheck 168/89 . patient denies pain, SOB, CXP. patient has PRN for labetalol SBP> 180. Per MD no need for additional medication. Continue to monitor patient . will speak to day team regarding medications
[2025-08-14] MEDS: HEPARIN SOD INJ 5000 UNIT/ML VIAL SC (05:52)
[2025-08-14 07:46] LABS: Alanine Aminotransferase 16 U/L (10-49); Albumin, Serum 3.9 gm/dL (3.4-4.8); Albumin/Globulin Ratio 2.3 (1.2-2.2); Alkaline Phosphatase 62 U/L (46-116); Anion Gap 14 (7-16); Aspartate Amino Transferase 24 U/L (0-34); BUN/Creatinine Ratio 10 Ratio (12-20); Bilirubin,Total 0.5 mg/dL (0.3-1.2); Blood Urea Nitrogen 10 mg/dL (9-23); Calcium 9.2 mg/dL (8.3-10.6); Calcium (Corrected) 9.3 mg/dL (8.5-10.1); Carbon Dioxide 23.9 mMol/L (20.0-31.0); Chloride 98 mMol/L (98-107); Creatinine (Component) 1.0 mg/dL (0.6-1.3); Estimated Creatinine Clearance 60.0 mL/min (>60); Globulin 1.7 gm/dL (2.3-3.5); Glucose 107 mg/dL (74-106); Osmolality,Calculated 270 (275-295); Potassium 3.4 mMol/L (3.4-5.1); Sodium 136 mMol/L (136-145); Total Protein 5.6 gm/dL (5.7-8.2); eGFR 60 See Note
[2025-08-14] MEDS: DIVALPROEX SOD EC 125 MG TABEC 750 MG PO (08:40)
[2025-08-14] MEDS: THIAMINE INJ 100 MG/ML VIAL 2 ML 200 MG IVP (08:40)
[2025-08-14] MEDS: LABETALOL INJ 5 MG/ML VIAL 20 ML 10 MG IVP (11:55)
--- NOTE | 2025-08-14 14:22 | ESDS_ITS ---
<Statement entered by Maximo Perez MD - 08/27/25 17:17> I reviewed above note and agree with findings and plans. I have also personally examined the patient with medicine team and went over assessment and plan with medical team including consumer insights intern and resident physician. Planned Discharge Date 08/14/25 DS: Providers Provider Date of admission: 08/10/25 14:39 Primary care physician: Fatuma Manuel PA-C Admitting Provider: Maximo Perez MD Attending Provider on Admission: Maximo Perez MD Consults: 08/10/25 10:43 Consult to Neurology / Tele-Neurology Routine Comment: Consulting Provider: [facility] 08/10/25 15:02 Referral Physical Therapy Routine Comment: Physician Instructions: 08/10/25 15:03 Referral Speech Therapy Routine Comment: 08/10/25 15:10 Consult to Neurology / Tele-Neurology Routine Comment: Consulting Provider: Robin Leong 08/10/25 21:21 Referral Registered Dietitian Routine Comment: Attending Provider on DC: Kelsey Foy MD Discharging Provider: Kelsey Foy MD DS: Diagnosis Problem List Completed Was Problem List Reviewed/Reconciled?: Yes Hospital Course Hospital Course Hospital course: This a 70 yo female PMHx of HTN, chronic pain, obesity on zepbound 7.5mg once weekly who presented to the emergency room for acute metabolic encephalopathy secondary to polypharmacy with elevated level of salicylates and acetaminophen, concerning for toxicity, likely secondary to polypharmacy. Poison control contacted and tele-neurology consulted. Depakote 750 mg twice daily added for no n-epileptic seizures. Medication reconciliation given polypharmacy. During the ED course, patient workup yielded negative results on CT non-con head/brain, WBC within normal normals, and renal panel showed a prerenal azotemia most likely due to medication side effect. Admitted for HERO and Acute Metabolic Encephalopathy. During the hospital course, nephrotoxic agents held including losartan; me dications that affected cognition: [place], gabapentin, amytriptiline, baclofen, tizanidine and cyclobenzaprine were stopped; and poison control was contacted for salicylate level 64.0 and acetameniphen level 34 on urine toxicology. Poison control recommended q2hr salicylate levels, daily renal panel, daily LFTs, and starting n-acetylcysteine (NAC). Given Thiamine 500mg IM TID, prn electrolyte repletion, and NAC (consulted pharmacy for dose).The following day, salicylate and acetaminophen levels returned to non-detectable. Hypertensive medications were restarted, amplodine and prn lobatelol. LFTs remained unchanged and unaffected, renal panel and kidney function showed downtrends with Cr 1.8 --> 1.0 and BUN 26 --> 10 over her hospital course. Patient's mentation completely improved from AOx0, recognizing no family members and repeating name to AOx3, recognizing family members, and holding a full conversation. Dr. Leong, neurologist, workup showed negative results for LP, MRI of brain showed no acute ischemia or hemorrhagic concerns, EEG showed brain electrical activity c/f NCSE however 2nd EEG returned to normal. Dr. Leong gave depekote IV transtioned down to PO. Patient's chronic conditions were managed, medication reconciliation done at time of discharge (information in discharge instructions). f/u with Dr. Leong in 2 weeks. Patient hemodynamically stable and safe for discharge. Instructions: -Depakote 750 mg twice daily for seizure concern. -Given history of Thiamine deficiency, please continue thiamine 100 mg once daily -Please follow up with Dr. Leong, neurology, with into 2 weeks. -discontinue sedating medication, including [place], Amitriptyline, and baclofen -Follow up with your primary care physician within 1 week of discharge. If you do not have a primary care physician, please follow up with the [facility] Residents clinic ([phone]) ?If you experience any new, worsening or persistent symptoms either call your primary doctor, or dial 911 or present to the emergency department. #Acute metabolic encephalopathy, secondary polypharmacy,improved #Polypharmacy #Salicylate Toxicity #Acetaminophen toxicity #thiamine deficiency #Nonepileptic seizure #Acute Kidney Injury, resolved #Metabolic acidosis, non-anion ion gap, resolved. #Hypertension #Hyperlipidemia #Chronic Pain #Obesity #Restless leg syndrome Discussed case with senior Dr. Gordillo and attending Dr. Chris Foy, DO PGY-1 Senior Resident Attestation: I have discussed the case with supervising physician and consumer insights intern physician involved in the care of patient. I personally saw and examined patient and discussed the assessment and plan with the entire medical team, including attending. I agree with assessment and plan as documented above. Sarah Gordillo MD PGY-2 Internal Medicine Status at Discharge Functional status at discharge: independent ambulation Overall status at discharge: patient is back to baseline Time Spent with Patient Time attestation: Total time spent providing and/or coordinating discharge services: Time spent: Greater than 30 minutes Quality: Stroke Pt Provided Written Stroke Discharge Instructions: Yes Exam Vital Signs Temp Pulse Resp BP Pulse Ox O2 Del Method O2 Flow Rate 97.3 F 81 19 154/80 H 96 Room Air 2 08/14/25 08:00 08/14/25 12:30 08/14/25 08:33 08/14/25 12:30 08/14/25 08:33 08/14/25 08:00 08/13/25 20:25 Narrative Exam General: No acute distress, well nourished Eye: PERRL, EOMI, normal conjunctiva, no scleral icterus HENT: Normocephalic, atraumatic, normal hearing, mucous membranes pink and moist, no oral erythema or lesions Neck: Supple, non-tender, no JVD, no lymphadenopathy Lungs: Clear to auscultation bilaterally, non-labored respirations, symmetric chest rise, no use of accessory muscles, breaths through mouth, spO2 99% on 2L Heart: Normal S1 and S2, no S3 or S4 appreciated. Normal rate and regular rhythm, no murmurs, rubs gallops, or edema. Peripheral pulses intact bilaterally, capillary refill brisk distally Abdomen: Soft, non-tender, non-distended, normal bowel sounds. No guarding or rebound tenderness. Musculoskeletal: Normal range of motion and strength. Skin: Skin is warm, dry, no rashes or lesions. Neurologic: Alert, awake and oriented x2. CN II-XII grossly intact. No focal neuro deficits. No signs of meningeal irritation noted. Psychiatric: Cooperative, appropriate mood and affect Discharge Plan Plan Patient Disposition: HOME (Self Care) Patient condition on transfer: Stable Care Plan Goals: Instructions: -Depakote 750 mg twice daily for seizure concern. -Given history of Thiamine deficiency, please continue thiamine 100 mg once daily -Please follow up with Dr. Yao, neurology, with into 2 weeks. -discontinue sedating medication, including [place], Amitriptyline, and baclofen -Follow up with your primary care physician within 1 week of discharge. If you do not have a primary care physician, please follow up with the [facility] Residents clinic ([phone]) ?If you experience any new, worsening or persistent symptoms either call your primary doctor, or dial 911 or present to the emergency department. Prescriptions/Referrals Prescriptions/Med Rec: New thiamine HCl (vitamin B1) 100 mg tablet 100 mg PO QDAY 7 Days Qty: 7 0RF divalproex 125 mg Tablet,Delayed Release (Dr/Ec) 750 mg PO BID 30 Days Qty: 360 0RF Continued gabapentin 300 mg capsule 300 mg PO TID Patient Comments: TAKE 1 CAPSULE BY MOUTH THREE TIMES A DAY tizanidine 4 mg capsule 4 mg PO DAILY losartan-hydrochlorothiazide 100-25 mg tablet 1 tab PO DAILY Patient Comments: TAKE 1 TABLET BY MOUTH EVERY DAY ropinirole 0.25 mg tablet 0.25 mg PO HS Patient Comments: TAKE 1 -2 TABS ORAL ROUTE 2 HOURS BEFORE BEDTIME metoprolol succinate 25 mg tablet extended release 24 hr 25 mg PO BID Patient Comments: TAKE 1 TABLET BY MOUTH TWICE A DAY ezetimibe 10 mg tablet 10 mg PO DAILY Patient Comments: TAKE 1 TABLET BY MOUTH EVERY DAY duloxetine 30 mg capsule,delayed release(DR/EC) 30 mg PO BID Patient Comments: TAKE 1 CAPSULE BY MOUTH TWICE A DAY Discontinued hydrocodone-acetaminophen 5-325 mg tablet 0.5 tab PO BID Patient Comments: TAKE 1/2 TABLET BY MOUTH 2 TIMES PER DAY NEEDED amlodipine 5 mg tablet 5 mg PO DAILY Patient Comments: TAKE 1 TABLET BY MOUTH EVERY DAY amitriptyline 25 mg tablet 25 mg PO DAILY Patient Comments: TAKE 1 TABLET BY MOUTH EVERYDAY AT BEDTIME baclofen 20 mg tablet 20 mg PO HS Zepbound 7.5 mg/0.5 mL pen injector 7.5 mg subcut QWEEK phentermine 37.5 mg capsule 37.5 mg PO QAM Rx Instructions: must administer 30 minutes before or 1-2 hours after breakfast cyclobenzaprine 10 mg tablet 10 mg PO HS Patient Comments: TAKE 1 TABLET BY ORAL ROUTE EVERY DAY AT BEDTIME FOR MUSCLE PAINS Referrals: Fatuma Manuel PA-C [Primary Care Provider] Robin Leong MD [Physician, Neurology] Patient/Caregiver Discharge Instructions Education Materials: Acute Kidney Failure Dc Print Language: Polish Stand Alone Forms: Nisreen Award Info., Patient Portal Info Letter Discharge Order Discharge Orders: Discharge (Routine); Ordered 08/14/25 Ordered By: Sarah Gordillo Quality Discharge Quality Measures VTE prophylaxis
--- NOTE | 2025-08-14 22:29 | PD.VPROG1 ---
Telemedicine visit statement This visit was conducted with the use of phone was obtained on 08/14/25. Documentation for date of: 08/14/25 Subjective Subjective Interval history: Patient is in telemetry, no complaints reported. Walked in the hallway without any support. Virtual exam Vital Signs Temp Pulse Resp BP Pulse Ox O2 Del Method O2 Flow Rate 97.3 F 81 19 154/80 H 96 Room Air 2 08/14/25 08:00 08/14/25 12:30 08/14/25 08:33 08/14/25 12:30 08/14/25 08:33 08/14/25 08:00 08/13/25 20:25 Objective Labs 08/13/25 05:12 08/14/25 05:48 Labs: Laboratory Results - last 24 hr 08/14/25 05:48 Sodium 136 Potassium 3.4 Chloride 98 Carbon Dioxide 23.9 Anion Gap 14 BUN 10 Creatinine 1.0 Estim Creat Clear Calc 60.0 L eGFR 60 BUN/Creatinine Ratio 10 L Glucose 107 H Calculated Osmolality 270 L Calcium 9.2 Corrected Calcium 9.3 Total Bilirubin 0.5 AST 24 ALT 16 Alkaline Phosphatase 62 Total Protein 5.6 L Albumin 3.9 Globulin 1.7 L Albumin/Globulin Ratio 2.3 H ABG Interpretation ABG results: 08/10/25 08/11/25 15:35 11:40 ABG pH 7.24 L 7.31 L ABG pCO2 40 40 ABG pO2 245 H 123 H D ABG HCO3 17 L 20 ABG O2 Saturation 100 H 99 H ABG Base Excess -10 L -6 L Assessment & Plan Problem List (1) Altered mental status: Status: Acute Assessment and plan: Initial EEG showing nonconvulsive status, started on Depakote. Improved back to baseline. Repeat EEG: normal Will continue with Depakote 750 mg bid MRI brain: normal. CSF analysis is unremarkable. Neurologically stable for discharge, no driving until cleared by neurology in 2 weeks. (2) Acute kidney injury: Status: Acute Assessment and plan: improving with IVF back to normal function.
--- NOTE | 2025-08-15 10:12 | CHAP ---
Addendum entered by Shawn Foreman 08/16/25 09:35: I accidentally put the wrong date for the visit. The patient was visited on 10:10:25, Saturday. Original Note: Patient was visited by the Spiritual Care Volunteer who prayed for them. (Volunteer was in the hospital from 09:00 - 10:12).
[2025-08-17 06:49] LABS: Valporic Acid (Depak)* 50.4 mg/L (50.0-100.0)
[2025-08-17 23:33] LABS: HSV-1 DNA, CSF NOT DETECTED copies/mL; HSV-1 DNA, CSF Source CEREBROSPINAL FLUID
[2025-08-18 06:31] LABS: Vitamin B1 (Thiamine)* <6 nmol/L (8-30)
[2025-08-18 06:32] LABS: HSV-2 DNA, CSF NOT DETECTED copies/mL; VDRL, CSF Qual* NON-REACTIVE
[2025-08-18 13:48] LABS: Albumin, CSF 70.8 mg/dL (8.0-42.0); IgG Index, CSF 0.59 (<0.70); IgG, CSF 4.5 mg/dL (0.8-7.7); IgG, Serum 381 mg/dL (600-1540); Synthesis Rate IgG, CSF +4.5 mg/24 h (-9.9 TO +3.3)
[2025-08-19 06:35] LABS: Albumin, Serum 3.5 g/dL (3.6-5.1)
[2025-08-20 06:19] LABS: Angiotensin Convert Enz, CSF* 10 U/L (< OR = 15); Myelin Basic Protein, CSF* <2.0 mcg/L (< OR = 4.0); Oligoclonal Bands, CSF* ABSENT (ABSENT)
== END 2025-08-14 12:36 | disposition home or self-care (01) | DRG 92 ==
LOC: SERX 15:50 → SERHOLD 15:58 → S2NX 21:03
PROVIDERS: Psychiatry & Neurology Neurology; Admitting Provider Internal Medicine; Emergency Provider Emergency Medicine; PCP Physician Assistant; Visit Provider Internal Medicine
DX: G92.8 Other toxic encephalopathy (principal); E51.9 Thiamine deficiency, unspecified; E87.20 Acidosis, unspecified; N17.9 Acute kidney failure, unspecified; I10 Essential (primary) hypertension; G89.29 Other chronic pain; E78.5 Hyperlipidemia, unspecified; E66.9 Obesity, unspecified; G25.81 Restless legs syndrome; Z68.35 Body mass index [BMI] 35.0-35.9, adult; R56.9 Unspecified convulsions; T39.095A Adverse effect of salicylates, initial encounter; W19.XXXA Unspecified fall, initial encounter; Z79.899 Other long term (current) drug therapy; Z91.81 History of falling
CPT/HCPCS: 36415; 36600; 70450; 70496; 70498; 70544; 71045; 76770; 80048; 80053; 80061; 80069; 80076; 80164; 80307; 80320; 80329; 81001; 82010; 82040; 82042; 82140; 82164; 82436; 82550; 82570; 82607; 82784; 82803; 82945; 83036; 83605; 83735; 83873; 83880; 83916; 84100; 84133; 84157; 84300; 84425; 84443; 84484; 85025; 85610; 85730; 86171; 86592; 87070; 87205; 87530; 89051; 92526; 92610; 93005; 93306; 95816; 96361; 96365; 96366; 96372; 96375; 97162; 99285; A4649; J0132; J1644; J2312; J2405; J3411; J3475; J3490; J7030; J7050; J7060; J7070; J7120; Q9967; A9270; G0480; J1920

== ENCOUNTER → 2025-08-23 | Outpatient (CLI) | payer OTHER, SELFPAY ==
[2025-08-23 08:41] LABS: Basophils # (Auto) 0.0 Thou/mm3 (0.0-0.2); Basophils % (Auto) 1 % (0-2.5); Eosinophils # (Auto) 0.2 Thou/mm3 (0.0-0.5); Eosinophils % (Auto) 4 % (0-10); Hematocrit 35.4 % (36.0-46.0); Hemoglobin 12.4 g/dL (12.0-16.0); Immature Granulocytes Auto 0.04 Thou/mm3 (0.00-0.00); Lymphocytes # (Auto) 0.8 Thou/mm3 (1.0-4.8); Lymphocytes % (Auto) 18 % (10-50); Mean Corpuscular HGB Conc 35.0 g/dl (31.0-37.0); Mean Corpuscular Hemoglobin 30.9 pg (25.0-35.0); Mean Corpuscular Volume 88 fL (80-100); Monocytes # (Auto) 0.6 Thou/mm3 (0.0-0.8); Monocytes % (Auto) 14 % (0-12); Neutrophils # (Auto) 2.7 Thou/mm3 (1.8-7.7); Neutrophils % (Auto) 63 % (37-80); Nucleated Red Blood Cell # 0.00 Thou/mm3 (0.00-0.00); Nucleated Red Blood Cell % 0 /100 WBC (0); Platelet Count 290 Thou/mm3 (140-440); RDW Standard Deviation 38.6 fL (36.4-46.3); Red Blood Count 4.01 Miln/mm3 (4.00-5.20); White Blood Count 4.3 Thou/mm3 (3.6-11.0)
[2025-08-23 08:43] LABS: Alanine Aminotransferase 42 U/L (10-49); Albumin, Serum 4.3 gm/dL (3.4-4.8); Albumin/Globulin Ratio 2.7 (1.2-2.2); Alkaline Phosphatase 61 U/L (46-116); Anion Gap 10 (7-16); Aspartate Amino Transferase 45 U/L (0-34); BUN/Creatinine Ratio 9 Ratio (12-20); Bilirubin,Total 0.4 mg/dL (0.3-1.2); Blood Urea Nitrogen 12 mg/dL (9-23); Calcium 9.0 mg/dL (8.3-10.6); Calcium (Corrected) 9.0 mg/dL (8.5-10.1); Carbon Dioxide 24.8 mMol/L (20.0-31.0); Chloride 92 mMol/L (98-107); Creatinine (Component) 1.3 mg/dL (0.6-1.3); Globulin 1.6 gm/dL (2.3-3.5); Glucose 90 mg/dL (74-106); Osmolality,Calculated 254 (275-295); Potassium 3.7 mMol/L (3.4-5.1); Sodium 127 mMol/L (136-145); Total Protein 5.9 gm/dL (5.7-8.2); eGFR 44 See Note
[2025-08-23 09:02] LABS: Glucose Estimated Average 108 mg/dL (80-131); Hemoglobin A1C 5.4 % Hgb (4.8-6.0)
== END | disposition home or self-care (01) ==
LOC: COPL 07:37
PROVIDERS: PCP Family Medicine; Referring Provider Family Medicine; Visit Provider Family Medicine
DX: R42 Dizziness and giddiness (principal); G93.41 Metabolic encephalopathy; I10 Essential (primary) hypertension; G40.919 Epilepsy, unspecified, intractable, without status epilepticus; R19.7 Diarrhea, unspecified
CPT/HCPCS: 36415; 80053; 83036; 85025

== ENCOUNTER → 2025-09-07 | Outpatient (CLI) | payer OTHER, SELFPAY ==
[2025-09-07 10:58] LABS: Alanine Aminotransferase 29 U/L (10-49); Albumin, Serum 5.0 gm/dL (3.4-4.8); Albumin/Globulin Ratio 2.5 (1.2-2.2); Alkaline Phosphatase 83 U/L (46-116); Anion Gap 11 (7-16); Aspartate Amino Transferase 26 U/L (0-34); BUN/Creatinine Ratio 13 Ratio (12-20); Bilirubin,Total 0.5 mg/dL (0.3-1.2); Blood Urea Nitrogen 29 mg/dL (9-23); Calcium 10.0 mg/dL (8.3-10.6); Calcium (Corrected) 10.0 mg/dL (8.5-10.1); Carbon Dioxide 20.4 mMol/L (20.0-31.0); Chloride 105 mMol/L (98-107); Creatinine (Component) 2.2 mg/dL (0.6-1.3); Globulin 2.0 gm/dL (2.3-3.5); Glucose 96 mg/dL (74-106); Osmolality,Calculated 277 (275-295); Potassium 5.1 mMol/L (3.4-5.1); Sodium 136 mMol/L (136-145); Total Protein 7.0 gm/dL (5.7-8.2); eGFR 23 See Note
== END | disposition home or self-care (01) ==
LOC: COPL 09:34
PROVIDERS: PCP Family Medicine; Referring Provider Family Medicine; Visit Provider Family Medicine
DX: I10 Essential (primary) hypertension (principal); R19.7 Diarrhea, unspecified
CPT/HCPCS: 36415; 80053

== ENCOUNTER → 2025-09-28 | Outpatient (CLI) | payer OTHER, SELFPAY ==
[2025-09-28 10:17] LABS: Alanine Aminotransferase 17 U/L (10-49); Albumin, Serum 4.6 gm/dL (3.4-4.8); Albumin/Globulin Ratio 2.9 (1.2-2.2); Anion Gap 10 (7-16); Aspartate Amino Transferase 19 U/L (0-34); BUN/Creatinine Ratio 16 Ratio (12-20); Bilirubin,Total 0.3 mg/dL (0.3-1.2); Blood Urea Nitrogen 19 mg/dL (9-23); Calcium 9.9 mg/dL (8.3-10.6); Calcium (Corrected) 9.9 mg/dL (8.5-10.1); Carbon Dioxide 21.9 mMol/L (20.0-31.0); Chloride 108 mMol/L (98-107); Creatinine (Component) 1.2 mg/dL (0.6-1.3); Globulin 1.6 gm/dL (2.3-3.5); Glucose 95 mg/dL (74-106); Osmolality,Calculated 281 (275-295); Potassium 4.4 mMol/L (3.4-5.1); Sodium 140 mMol/L (136-145); Total Protein 6.2 gm/dL (5.7-8.2); eGFR 48 See Note
[2025-09-28 10:30] LABS: Alkaline Phosphatase 72 U/L (46-116); Cardiac Risk Estimate 2.8 RATIO (3.7-5.6); Cholesterol 147 mg/dL (132-200); HDL Cholesterol 53 mg/dL (40-60); LDL Cholesterol,Calculated 59 mg/dL (0-130); Triglycerides 177 mg/dL (30-150)
== END | disposition home or self-care (01) ==
LOC: COPL 09:15
PROVIDERS: PCP Family Medicine; Referring Provider Physician Assistant; Visit Provider Physician Assistant
DX: I12.9 Hypertensive chronic kidney disease with stage 1 through stage 4 chronic kidney disease, or unspecified chronic kidney disease (principal); N18.30 Chronic kidney disease, stage 3 unspecified; E78.5 Hyperlipidemia, unspecified
CPT/HCPCS: 36415; 80053; 80061

== ENCOUNTER → 2025-10-04 | Outpatient (CLI) | payer OTHER, SELFPAY ==
[2025-10-04 16:55] LABS: Basophils # (Auto) 0.0 Thou/mm3 (0.0-0.2); Basophils % (Auto) 0 % (0-2.5); Eosinophils # (Auto) 0.1 Thou/mm3 (0.0-0.5); Eosinophils % (Auto) 1 % (0-10); Hematocrit 37.5 % (36.0-46.0); Hemoglobin 12.5 g/dL (12.0-16.0); Immature Granulocytes Auto 0.01 Thou/mm3 (0.00-0.00); Lymphocytes # (Auto) 1.2 Thou/mm3 (1.0-4.8); Lymphocytes % (Auto) 16 % (10-50); Mean Corpuscular HGB Conc 33.3 g/dl (31.0-37.0); Mean Corpuscular Hemoglobin 30.4 pg (25.0-35.0); Mean Corpuscular Volume 91 fL (80-100); Monocytes # (Auto) 0.7 Thou/mm3 (0.0-0.8); Monocytes % (Auto) 9 % (0-12); Neutrophils # (Auto) 5.3 Thou/mm3 (1.8-7.7); Neutrophils % (Auto) 73 % (37-80); Nucleated Red Blood Cell # 0.00 Thou/mm3 (0.00-0.00); Nucleated Red Blood Cell % 0 /100 WBC (0); Platelet Count 324 Thou/mm3 (140-440); RDW Standard Deviation 49.3 fL (36.4-46.3); Red Blood Count 4.11 Miln/mm3 (4.00-5.20); White Blood Count 7.3 Thou/mm3 (3.6-11.0)
[2025-10-04 17:04] LABS: Alanine Aminotransferase 19 U/L (10-49); Albumin, Serum 4.5 gm/dL (3.4-4.8); Albumin/Globulin Ratio 2.4 (1.2-2.2); Alkaline Phosphatase 73 U/L (46-116); Anion Gap 10 (7-16); Aspartate Amino Transferase 17 U/L (0-34); BUN/Creatinine Ratio 14 Ratio (12-20); Bilirubin,Total 0.6 mg/dL (0.3-1.2); Blood Urea Nitrogen 15 mg/dL (9-23); C-Reactive Protein < 0.5 mg/dL (0.0-0.9); Calcium 9.4 mg/dL (8.3-10.6); Calcium (Corrected) 9.4 mg/dL (8.5-10.1); Carbon Dioxide 23.2 mMol/L (20.0-31.0); Chloride 107 mMol/L (98-107); Creatinine (Component) 1.1 mg/dL (0.6-1.3); Globulin 1.9 gm/dL (2.3-3.5); Glucose 89 mg/dL (74-106); Osmolality,Calculated 279 (275-295); Potassium 4.1 mMol/L (3.4-5.1); Sodium 140 mMol/L (136-145); Total Protein 6.4 gm/dL (5.7-8.2); eGFR 53 See Note
[2025-10-04 17:40] LABS: Sed Rate (ESR) 3 mm/hr (0-30)
== END | disposition home or self-care (01) ==
LOC: COPL 15:43
PROVIDERS: PCP Family Medicine; Referring Provider Physician Assistant Medical; Visit Provider Physician Assistant Medical
DX: M25.50 Pain in unspecified joint (principal); M79.10 Myalgia, unspecified site; R53.83 Other fatigue
CPT/HCPCS: 36415; 80053; 85025; 85652; 86140